=== PATIENT | male | born 1940 | race Caucasian/White ===

== ENCOUNTER 2018-02-14 02:21 | Inpatient (IN) ==
[2018-02-14] MEDS ORDERED: Naloxone 0.4 MG/ML INJ IVP PRN (05:42)
--- NOTE | 2018-02-14 05:44 | Internal Med History&Physical ---
<Juancarlos Boyer - Last Filed: 02/14/18 06:18> Date of Encounter: 02/14/18 Time of Encounter: 05:41 Internal Medicine - H&P: HPI Chief complaint: Hypotension Admitted From: Hospital to Hospital Transfer Plans for Post Hospital Care: Home History of present illness: Mr. Martinez is a 77 year old male with past medical history of aortic aneurysm with dissection status post repair in 2013, DVT not on anticoagulation, hypertension, coronary artery disease, gave lesion, chronic anemia who presented to [facility] emergency room this evening with complaint of hypotension. He states that he has been feeling very weak and dizzy on and off since yesterday morning and he took his blood pressure and noted that it was low. He states he normally runs in the 100s to 110s systolic but noticed it was 90. He has been experienced this multiple times in the past and states that he has required transfusions at least once per month for the past 6 months. He has had multiple workups in the past for chronic anemia with GI bleed and hypotension at [place], [facility], [facility]. He has also been working with Dr. Turcios and cancer center for anemia and receiving iron supplementation. He also has complaint of loose stools and diarrhea for the past 6 weeks which she has been told it is related to his gave syndrome. He states he has approximately 2-3 bowel movements per day which are sometimes watery sometimes formed but he has never noticed any bright red blood or melena. He also has some nausea and dry retching without vomiting during this time. He states his appetite has been decreased due to this but he has been drinking water and milk. He does have some abdominal pain but states it usually occurs only after his retching episodes. This also happens approximately once per day. He was scheduled to see Dr. Schafer on 03/01 for EGD. He was also diagnosed with a DVT in the right lower extremity last Monday at the [place]. He was not anticoagulated due to history of multiple GI bleeds and chronic anemia. He does have an IVC filter in place due to previous blood clots with pulmonary embolisms. He is having no symptoms of fevers but does admit to severe chills frequently. He denies any chest pain, shortness of breath and does admit to lower extremity edema. He is scheduled to see Dr. Turcios today for anemia follow-up. Vitals upon presentation to [facility] included heart rate of 109, respiratory rate 24, blood pressure 92/61 which improved to 110/76 with 1 L bolus of normal saline. Laboratory results significant for hemoglobin of 8.1 (baseline 7-9), BUNs/creatinine of 35/1.59, albumin of 2.7. Past medical history as above Past surgical history includes aneurysm repair in 2013, IVC filter Past surgical history includes a never smoker, no alcohol use, denies drug use Past Med Surg Social Fam HX - Past Medical History Medical history: aortic aneurysm, DVT, diabetes, hypertension, kidney stones, pulmonary embolus, other Additional medical history: Prostate cancer. Anemia. Psychiatric history: no psych history - Past Surgical History Surgical History: coronary bypass (CABG), other Additional surgical history: AAA repair - Social History Smoking Status: Former smoker Smokeless Tobacco Status: No Alcohol use: none Drug use: none - Family History Mother Name: Iris Martinez Living Status: Age at : 79 Cause of : heart issues cancer and dm Hx Family Cardiac Disorders: Yes Hx Family Endocrine Disorder: Yes (DM) Internal Medicine - H&P: Meds Carvedilol [Coreg] 25 mg PO BID 08/06/17 [History] Cyanocobalamin (Vitamin B-12) [Vitamin B12] 1,000 mcg PO DAILY 08/06/17 [History ] Folic Acid 1 mg PO DAILY 08/06/17 [History] Magnesium 84 mg PO BID 08/06/17 [History] Multivit-Min/FA/Lycopen/Lutein [Centrum Silver Men Tablet] 1 each PO DAILY 08/06 [History] Pantoprazole Sodium [Protonix] 40 mg PO BID 08/06/17 [History] Potassium Chloride [Klor-Con 10] 10 meq PO TID 08/06/17 [History] Venlafaxine [Effexor] 0.5 tab PO DAILY 08/06/17 [History] Vitamin E Acetate [Vitamin E] 400 unit PO DAILY 08/06/17 [History] Albuterol Sulfate [Albuterol Inhaler] 2 puff IH BID PRN 10/18/17 [History] Insulin ASPART [Novolog Flexpen] 0 unit SQ TIDWM 11/08/17 [History] Insulin Glargine [Lantus] 86 unit SQ BID 11/08/17 [History] Torsemide [Demadex] 10 mg PO DAILY 11/08/17 [History] l Gass[place]/B Bifidum/B Longum [Opternative Capsule] 1 each PO DAILY [History] Ondansetron HCl [Zofran] 4 mg PO Q6H PRN #30 tab 12/06/17 [Rx] Atorvastatin [Lipitor] 40 mg PO HS 12/24/17 [History] Promethazine [Phenergan] 12.5 mg PO Q6HR 15 Days #60 tablet 12/28/17 [Rx] Cholecalciferol (Vitamin D3) [Vitamin D] 2,000 unit PO DAILY 01/18/18 [History] Loperamide [Imodium] 2 mg PO AD PRN 01/18/18 [History] Prochlorperazine Maleate [Compazine] 5 mg PO BID PRN 01/18/18 [History] 3 Allergy/AdvReac Type Severity Reaction Status Date / Time Sulfa (Sulfonamide Allergy Rash Verified 02/13/18 22:50 Antibiotics) acetaminophen [From Vicodin] AdvReac Confusion Verified 02/13/18 22:50 hydrocodone [From Vicodin] AdvReac Confusion Verified 02/13/18 22:50 tramadol AdvReac Confusion Verified 02/13/18 22:50 All Systems PM: A 10-system review of systems was performed and is negative for pertinent findings except as documented above in the HPI. - Constitutional Constitutional: chills, lethargy, malaise, no fever(s) - Cardiovascular Cardiovascular ROS IM: edema, lightheadedness, no chest pain, no diaphoresis, no dyspnea, no dyspnea on exertion, no orthopnea, no palpitations, no syncope - Respiratory Respiratory: no cough, no dyspnea, no dyspnea on exertion, no wheezing - Gastrointestinal Gastrointestinal: abdominal pain, change in bowel habits, diarrhea, loose stools , nausea, vomiting, no constipation, no dyspepsia, no dysphagia, no hematemesis , no hematochezia, no melena - Integumentary Integumentary IM: no rash - Neurological Neurological ROS: dizziness, no numbness, no tingling - Constitutional Vitals: Temp Pulse Resp BP Pulse Ox 97.6 F 90 16 99/69 97 02/14/18 04:49 02/14/18 04:49 02/14/18 04:49 02/14/18 04:49 02/14/18 04:49 Exam: Gen.: Vitals noted. No acute distress. AAOx3. Hard of hearing HEENT: PERRL/EOMI, oropharynx clear, Normocephalic, atraumatic, mildly dry mucous membranes Cardiac: RRR, systolic murmur, +S1/S2 Pulmonary: CTA bilaterally, no wheezes, rales or rhonchi, equal chest expansion Abdomen: soft, tender to palpation of left upper quadrant, BS noted, no guarding MSK: ROM intact, no joint swelling noted Extremities: Significant 3+ BLE edema, no focal areas of erythema, no cyanosis or clubbing Neuro: A&Ox3, moves all extremities, no focal deficits Psych: Appropriate mood and behavior - Assessment and plan (1) GI bleed Current Visit: Yes Status: Suspected Assessment and plan: - 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 Patient states he requires transfusions approximately once per month - Denies melena, hematochezia, hematemasis - FOBT ordered and pending. - Multiple recent scopes, scheduled for EGD with [facility] later this month - [place] Hypotension likely from multiple factors including decreased oral intake, chronic diarrhea, hypoalbuminemia with third spacing. - Improved with fluids, will continue at 100/hr Plan - Appears to be chronic anemia and no acute bleeding. - Will consult GI for further recommendations - Trend H/H - Not on AC for DVT Qualifiers: GI bleed type/associated pathology: angiodysplasia of stomach and duodenum Qualified Code(s): K31.811 - Angiodysplasia of stomach and duodenum with bleeding (2) GAVE (gastric antral vascular ectasia) Current Visit: Yes Status: Acute Assessment and plan: as above for GI bleed Diagnosed at [facility], has followed with Gi in the past (3) CAD (coronary artery disease) Current Visit: Yes Status: Chronic Assessment and plan: - Chronic, no chest pain -Will continue BB when BP is more stable Not on ASA due to bleeds Qualifiers: Coronary Disease-Associated Artery/Lesion type: unspecified vessel or lesion type [place] vs. transplanted heart: unspecified whether [place] or transplanted heart Associated angina: without angina Qualified Code(s): I25.10 - Atherosclerotic heart disease of [place] coronary artery without angina pectoris (4) Hypoalbuminemia Current Visit: Yes Status: Acute Assessment and plan: Albumin of 2.7, likely at least in part due to poor nutrition - Patient denies history of liver disease, kidney disease - Will replace albumin with goal of improving BP and edema (5) Hypotension Current Visit: Yes Status: Acute Assessment and plan: - Likely multifactorial from decreased oral intake, diarrhea, vomiting, history of GI bleeds - Presented at 92/61, improved with fluids to 110/76 at [facility]. Mildly low on presentation here at 99/69 - Patient was initially symptomatic with lightheadedness, now resolved. - Plan: Continue fluids, add albumin, consult GI, Zofran, immodium Qualifiers: Hypotension type: unspecified hypotension type Qualified Code(s): I95.9 - Hypotension, unspecified (6) DVT (deep venous thrombosis) Current Visit: Yes Status: Acute Assessment and plan: - Diagnosed at [place] last Monday - Not on AC due to very significant history of GI bleeds - Requested patient to bring in records - High risk for bleeds. - patient states he had IVC filter placed approximately 5 years ago for DVT/PE Qualifiers: DVT location: lower extremity Affected thrombotic vein of extremity: unspecified lower extremity distal vein Chronicity: acute Laterality: right Qualified Code(s): I82.4Z1 - Acute embolism and thrombosis of unspecified deep veins of right distal lower extremity (7) Diabetes Current Visit: Yes Status: Chronic Assessment and plan: BS on presentation of 136 - Will start SSI - A1c Qualifiers: Diabetes mellitus type: type 2 Diabetes mellitus long lines operator insulin use: with senior living use Diabetes mellitus complication status: without complication Qualified Code(s): E11.9 - Type 2 diabetes mellitus without complications; Z79.4 - USP (current) use of insulin (8) Anemia Current Visit: Yes Status: Chronic Assessment and plan: - Chronic anemia with baseline hgb of 7-9 - Likely combination of iron deficiency with chronic blood loss due to GI bleeds , GAVE syndrome - Near baseline at 8.1/31.4 - Symptoms of lightheadedness, likely related to hypotension as above - Continue to monitor, FOBT, H/H - Transfuse as necessary and type and screen - Will give Iron and consult Heme/Onc Qualifiers: Anemia type: iron deficiency Iron deficiency anemia type: chronic blood loss Qualified Code(s): D50.0 - Iron deficiency anemia secondary to blood loss (chronic) (9) BLAYNE (acute kidney injury) Current Visit: Yes Status: Acute Assessment and plan: BLAYNE on CKD with BUN/Cr of 35/1.59 - 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 Previous labs show stage III - Likely secondary to pre-renal causes as above - Will hydrate with NS at 100/hr - Continue to monitor - Time Spent With Patient Total time spent is greater than 50% in coordination of care (as documented) at patient's floor/unit and/or counseling patient: <Santo Jin - Last Filed: 02/14/18 06:56> Date of Encounter: 02/14/18 Internal Medicine - H&P: HPI History of present illness: Mr. Martinez is a 77 year old male All Systems PM: A 10-system review of systems was performed and is negative for pertinent findings except as documented above in the HPI. - Constitutional Vitals: Temp Pulse Resp BP Pulse Ox 97.6 F 90 16 99/69 97 02/14/18 04:49 02/14/18 04:49 02/14/18 04:49 02/14/18 04:49 02/14/18 04:49 - Attending Attestation I have seen and examined the patient with Dr. Boyer and agree with his/ her assessment and plan. 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 Had similar episode last Monday when he was given IV fluids but he was continued on diuretics as well as antihypertensive medications over the weekend. Denies any hematochezia, melena, bright red blood per rectum or change in bowel habits. Initial investigation revealed acute on chronic kidney failure as well as drop in hemoglobin from 9.5 to 8.1 which is actually close to his baseline. Suspect hypotension from volume depletion in addition to ongoing diuretic and beta emily use rather than acute GI bleed. Will continue IV fluids, check H&H and FOBT, and continue IV iron in view of refractory iron deficiency anemia. Has an appointment with hematology today as an outpatient so we will consult heme. GI has scheduled EGD for the patient on 03/01; will follow up on their recommendation for timing of EGD. Apparently has DVT scan done at [place] [facility] which was +ve. This is not a anticoagulation candidate, advised the to bring in the report read and a repeat study here at [facility]. Still has IVC filter in situ. Santo Jin MD - Assessment and plan (1) Diabetes Current Visit: Yes Status: Chronic Qualifiers: Diabetes mellitus type: type 2 Diabetes mellitus senior living insulin use: with senior living use Diabetes mellitus complication status: without complication Qualified Code(s): E11.9 - Type 2 diabetes mellitus without complications; Z79.4 - termite technician (current) use of insulin (2) Anemia Current Visit: Yes Status: Chronic Qualifiers: Anemia type: iron deficiency Iron deficiency anemia type: chronic blood loss Qualified Code(s): D50.0 - Iron deficiency anemia secondary to blood loss (chronic) (3) Hypotension Current Visit: Yes Status: Acute Qualifiers: Hypotension type: unspecified hypotension type Qualified Code(s): I95.9 - Hypotension, unspecified (4) DVT (deep venous thrombosis) Current Visit: Yes Status: Acute Qualifiers: DVT location: lower extremity Affected thrombotic vein of extremity: unspecified lower extremity distal vein Chronicity: acute Laterality: right Qualified Code(s): I82.4Z1 - Acute embolism and thrombosis of unspecified deep veins of right distal lower extremity (5) GI bleed Current Visit: Yes Status: Suspected Qualifiers: GI bleed type/associated pathology: angiodysplasia of stomach and duodenum Qualified Code(s): K31.811 - Angiodysplasia of stomach and duodenum with bleeding (6) GAVE (gastric antral vascular ectasia) Current Visit: Yes Status: Acute (7) CAD (coronary artery disease) Current Visit: Yes Status: Chronic Qualifiers: Coronary Disease-Associated Artery/Lesion type: unspecified vessel or lesion type [place] vs. transplanted heart: unspecified whether [place] or transplanted heart Associated angina: without angina Qualified Code(s): I25.10 - Atherosclerotic heart disease of [place] coronary artery without angina pectoris (8) Hypoalbuminemia Current Visit: Yes Status: Acute (9) BLAYNE (acute kidney injury) Current Visit: Yes Status: Acute - Time Spent With Patient Total time spent is greater than 50% in coordination of care (as documented) at patient's floor/unit and/or counseling patient:
[2018-02-14] MEDS ORDERED: Albumin 25% 25gram/100mL 25 GM/100 ML IV.SOLN IVPB ONE (05:51)
[2018-02-14] MEDS: 0.9 % Sodium Chloride 1,000 ML IVC SCH (06:35)
[2018-02-14] MEDS: Ondansetron 4 MG/2 ML VIAL IVP PRN (06:36)
[2018-02-14] MEDS ORDERED: Dextrose Gel 15 GM/37.5 ML TUBE PO PRN ×2 (06:43)
[2018-02-14] MEDS ORDERED: *HR* Dextrose 50 % in Water (Syg) 50 ML SYRINGE IVP PRN (06:43)
[2018-02-14] MEDS ORDERED: D5% in Water 1,000 ML IVC PRN (06:43)
[2018-02-14 08:04] LABS: Basophils % 0.2 %; Eosinophils # 0.1 K/mcL (0.0-0.6); Eosinophils % 1.5 %; Hematocrit 24.7 % (37.5-50.1); Hemoglobin 7.2 g/dL (12.9-16.9); Immature Granulocytes % 0.6 % (0-4); Lymphocytes # 0.3 K/mcL (0.6-4.6); Lymphocytes % 6.4 %; Mean Corpuscular HGB Conc 29.1 g/dL (31.6-35.5); Mean Corpuscular Hemoglobin 24.9 pg (28.0-33.3); Mean Corpuscular Volume 85.5 fL (83.0-100.0); Mean Platelet Volume 10.8 fL (9.4-12.4); Monocytes # 0.5 K/mcL (0.0-1.3); Monocytes % 9.3 %; Neutrophils # 4.3 K/mcL (1.6-8.9); Platelet Count 116 K/mcL (140-400); Red Blood Count 2.89 M/mcL (4.19-5.50); Red Cell Distribution Width 17.9 % (11.5-14.5)
[2018-02-14 08:14] LABS: Estimated Average Glucose 160 mg/dl; Hemoglobin A1C 7.2 %
[2018-02-14 08:17] LABS: INR 1.3; Prothrombin Time 14.3 Seconds (9.4-12.1)
[2018-02-14 08:19] LABS: Activated Partial Thrombo Time 21.9 Seconds (26.0-36.0)
[2018-02-14 08:26] LABS: BUN/Creatinine Ratio 24 (6-26); Blood Urea Nitrogen 33 mg/dL (8-23); Calcium 7.5 mg/dL (8.6-10.3); Carbon Dioxide 19 mEq/L (23-29); Chloride 111 mEq/L (98-107); Glucose 174 mg/dL (70-105); Osmolality,Calculated 297 (280-300); Potassium 4.3 mEq/L (3.5-5.1); Sodium 138 mEq/L (136-145); eGFR For Non-African Americans 50 (> 60)
[2018-02-14] MEDS: Iron Sucrose Complex 250 MG in 0.9 % Sodium Chloride 250 ML IVPB SCH (09:19)
--- NOTE | 2018-02-14 10:04 | Oncology Inp Consult Note ---
<Nicko Aguilar - Last Filed: 02/14/18 15:34> Date of Encounter: 02/14/18 Time of Encounter: 09:56 Assessment and Plan (1) Anemia Status: Chronic Assessment and plan: patient presents with worsening anemia hgb was 9.4 on 02/01/18 and today is 7.2 patient had bowel movement this morning that was brown, no evidence of hematocheiza or melena. He has had an extensive workup with BM biopsy showing erythroid hyperplasia. cytogenetics/FISH studies negative for MDS, multiple myeloma with his history of GAVE and recent pill endoscopy last month showing GAVE and duodenal AVM he will need an EGD inpatient to evaluate UGI bleed. GI was already consulted. He is received IV iron already so no need to repeat iron panel. Patient also has elevated INR of 1.3 and platelets of 1.6 with recent paracentesis which may be signs of cirrhosis plan: pantoprazole 40mg BID, NPO, await GI recommendations, transfuse if hgb <7 Qualifiers: Anemia type: iron deficiency Iron deficiency anemia type: chronic blood loss Qualified Code(s): D50.0 - Iron deficiency anemia secondary to blood loss (chronic) (2) BLAYNE (acute kidney injury) Status: Acute Assessment and plan: BLAYNE on CKD III 2nd to anemia on IVF (3) DVT (deep venous thrombosis) Status: Acute Assessment and plan: recently [facility] has IVC filter placed in 2014 after patient had PE and he was not a candidate for anticoagulatioon due to GI bleed patient has GI bleed this admission. hold any anticoagulation Qualifiers: DVT location: lower extremity Affected thrombotic vein of extremity: unspecified lower extremity distal vein Chronicity: acute Laterality: right Qualified Code(s): I82.4Z1 - Acute embolism and thrombosis of unspecified deep veins of right distal lower extremity (4) GAVE (gastric antral vascular ectasia) Status: Acute Assessment and plan: plan as above. - Data of Consult Patient: known to practice within the last 3 years Consult date: 02/14/18 Requesting Physician: Santo Jin MD Primary Care Provider: PCP [facility] - Consult Narrative Reason for consult: anemia History of present illness: Mr. 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 Patient repors having symptoms of dizziness throughout the day yesterday. He then checked his BP at home which was in systolic 80s. He went to [place] [facility] where he was given 1L IVF which improved his blood pressure. Patient follows Dr. Turcios for chronic anemia and has recieved multiple transfusions of PRBC and IV iron. He reports loose stools and dry heaving as well as sputum production, LE edema. He denies headache, blurry vision, neck pain, rinorrhea, ear discharge , sob, cough, chest pain, palpitations, abdominal pain, N/V/D. Patient was scheduled with Dr. Schafer on 03/01 for EGD. Patient has had 20 packed red blood cells and 9 doses of IV iron in past 6 months. 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 He has recent capsule endosocpy showing GAVE along with duodenal AVM. He recently had a paracentesis draining 9L with cytology negative for malignancy. Unclear etiology of paracentesis Past Med Surg Social Fam HX - Past Medical History Medical history: aortic aneurysm, DVT, diabetes, hypertension, kidney stones, pulmonary embolus, other Additional medical history: Prostate cancer. Anemia. Psychiatric history: no psych history - Past Surgical History Surgical History: coronary bypass (CABG), other Additional surgical history: AAA repair - Social History Smoking Status: Former smoker Smokeless Tobacco Status: No Alcohol use: none Drug use: none - Family History Mother Name: Iris Martinez Living Status: Age at : 79 Cause of : heart issues cancer and dm Hx Family Cardiac Disorders: Yes Hx Family Endocrine Disorder: Yes (DM) Medications and Allergies Carvedilol [Coreg] 25 mg PO BID 08/06/17 [History] Cyanocobalamin (Vitamin B-12) [Vitamin B12] 1,000 mcg PO DAILY 08/06/17 [History ] Folic Acid 1 mg PO DAILY 08/06/17 [History] Magnesium 84 mg PO BID 08/06/17 [History] Multivit-Min/FA/Lycopen/Lutein [Centrum Silver Men Tablet] 1 each PO DAILY 08/06 [History] Pantoprazole Sodium [Protonix] 40 mg PO BID 08/06/17 [History] Potassium Chloride [Klor-Con 10] 10 meq PO TID 08/06/17 [History] Venlafaxine [Effexor] 37.5 tab PO DAILY 08/06/17 [History] Vitamin E Acetate [Vitamin E] 400 unit PO DAILY 08/06/17 [History] Albuterol Sulfate [Albuterol Inhaler] 2 puff IH BID PRN 10/18/17 [History] Insulin ASPART [Novolog Flexpen] 20 unit SQ QAM 11/08/17 [History] Insulin Glargine [Lantus] 90 unit SQ BID 11/08/17 [History] Torsemide [Demadex] 10 mg PO DAILY 11/08/17 [History] l Gasseri/B Bifidum/B Longum [[employer] Capsule] 1 each PO DAILY [History] Ondansetron HCl [Zofran] 4 mg PO Q6H PRN #30 tab 12/06/17 [Rx] Atorvastatin [Lipitor] 40 mg PO HS 12/24/17 [History] Cholecalciferol (Vitamin D3) [Vitamin D] 2,000 unit PO DAILY 01/18/18 [History] Prochlorperazine Maleate [Compazine] 5 mg PO BID PRN 01/18/18 [History] Insulin ASPART [NovoLOG] 35 unit SQ 1200 02/14/18 [History] Insulin ASPART [NovoLOG] 48 unit SQ 1800 02/14/18 [History] 3 Allergy/AdvReac Type Severity Reaction Status Date / Time Sulfa (Sulfonamide Allergy Rash Verified 02/13/18 22:50 Antibiotics) acetaminophen [From Vicodin] AdvReac Confusion Verified 02/13/18 22:50 hydrocodone [From Vicodin] AdvReac Confusion Verified 02/13/18 22:50 tramadol AdvReac Confusion Verified 02/13/18 22:50 Review of systems: Constitutional: Denies fever, chills HEENT: Denies headache, vision changes, neck pain, sore throat, rhinorrhea Heart: Denies chest pain palpitations Lungs: Denies shortness of breath cough Abdomen: Denies abdominal pain nausea vomiting diarrhea. Reports dry heaves Back: Denies back pain Kidney: Denies dysuria, hematuria Skin: Denies rash, lesions Extremities: reports swelling, pain Neuro: Denies numbness and tingling. Reports dizziness Oncology - Exam - Constitutional Vitals: Temp Pulse Resp BP Pulse Ox 98.4 F 94 18 104/67 92 02/14/18 07:26 02/14/18 07:26 02/14/18 07:26 02/14/18 07:26 02/14/18 07:26 - Additional findings Additional findings: General: plesant without distress HEENT: Head atraumatic, normocephalic, EOMI, PERRL, neck nontender to palpation , absent lymphadenopathy, Moist Mucous Membranes, Heart: Regular rate and rhythm with no murmur Lungs: Clear to auscultation bilaterally Abdomen: Soft nontender, nondistended positive bowel sounds Skin: warm and dry, absent rash Extremities: 2+ pedal edema Neuro:alert oriented x3 Vascular: Pedal and radial pulses 2 out of 4 Oncology - Results Labs: 3 02/14/18 02/14/18 02/14/18 07:52 07:52 07:52 WBC RBC Hgb Hct MCV MCH MCHC RDW Plt Count MPV Immature Gran % Seg Neutrophils % Lymphocytes % Monocytes % Eosinophils % Basophils % Neutrophils # Lymphocytes # Monocytes # Eosinophils # Basophils # PT 14.3 H INR 1.3 APTT 21.9 L Sodium 138 Potassium 4.3 Chloride 111 H Carbon Dioxide 19 L BUN 33 H Creatinine 1.38 H Est GFR ( Amer) > 60 Est GFR (Non-Af Amer) 50 L BUN/Creatinine Ratio 24 Glucose 174 H Est Mean Plasma Glucose 160 Hemoglobin A1c 7.2 H Calculated Osmolality 297 Calcium 7.5 L Blood Type Antibody Screen 3 02/14/18 02/14/18 07:52 05:55 WBC 5.3 RBC 2.89 L Hgb 7.2 L Hct 24.7 L MCV 85.5 MCH 24.9 L MCHC 29.1 L RDW 17.9 H Plt Count 116 L MPV 10.8 Immature Gran % 0.6 Seg Neutrophils % 82.0 Lymphocytes % 6.4 Monocytes % 9.3 Eosinophils % 1.5 Basophils % 0.2 Neutrophils # 4.3 Lymphocytes # 0.3 L Monocytes # 0.5 Eosinophils # 0.1 Basophils # 0.0 PT INR APTT Sodium Potassium Chloride Carbon Dioxide BUN Creatinine Est GFR ( Amer) Est GFR (Non-Af Amer) BUN/Creatinine Ratio Glucose Est Mean Plasma Glucose Hemoglobin A1c Calculated Osmolality Calcium Blood Type O POSITIVE Antibody Screen NEGATIVE Consult Discharge Plan - Plan [facility]errals: [facility]Primary Care Provider[facility] - <Alex Turcios - Last Filed: 02/14/18 22:29> Date of Encounter: 02/14/18 - Data of Consult Requesting Physician: Santo Jin MD Primary Care Provider: [facility] - Consult Narrative History of present illness: Mr. Martinez is a 77 year old male Oncology - Exam - Constitutional Vitals: Temp Pulse Resp BP Pulse Ox 99 F 98 18 130/76 95 02/14/18 20:13 02/14/18 20:13 02/14/18 20:13 02/14/18 20:13 02/14/18 19:51 Oncology - Results Labs: 3 02/14/18 02/14/18 02/14/18 15:52 12:12 11:48 WBC RBC Hgb 7.4 L Hct 24.9 L MCV MCH MCHC RDW Plt Count MPV Immature Gran % Seg Neutrophils % Lymphocytes % Monocytes % Eosinophils % Basophils % Neutrophils # Lymphocytes # Monocytes # Eosinophils # Basophils # PT INR APTT Sodium Potassium Chloride Carbon Dioxide BUN Creatinine Est GFR ( Amer) Est GFR (Non-Af Amer) BUN/Creatinine Ratio Glucose POC Glucose 141 H 134 H Est Mean Plasma Glucose Hemoglobin A1c Calculated Osmolality Calcium Blood Type Antibody Screen Crossmatch 3 02/14/18 02/14/18 02/14/18 07:52 07:52 07:52 WBC RBC Hgb Hct MCV MCH MCHC RDW Plt Count MPV Immature Gran % Seg Neutrophils % Lymphocytes % Monocytes % Eosinophils % Basophils % Neutrophils # Lymphocytes # Monocytes # Eosinophils # Basophils # PT 14.3 H INR 1.3 APTT 21.9 L Sodium 138 Potassium 4.3 Chloride 111 H Carbon Dioxide 19 L BUN 33 H Creatinine 1.38 H Est GFR ( Amer) > 60 Est GFR (Non-Af Amer) 50 L BUN/Creatinine Ratio 24 Glucose 174 H POC Glucose Est Mean Plasma Glucose 160 Hemoglobin A1c 7.2 H Calculated Osmolality 297 Calcium 7.5 L Blood Type Antibody Screen Crossmatch 3 02/14/18 02/14/18 02/14/18 07:52 07:29 05:55 WBC 5.3 RBC 2.89 L Hgb 7.2 L Hct 24.7 L MCV 85.5 MCH 24.9 L MCHC 29.1 L RDW 17.9 H Plt Count 116 L MPV 10.8 Immature Gran % 0.6 Seg Neutrophils % 82.0 Lymphocytes % 6.4 Monocytes % 9.3 Eosinophils % 1.5 Basophils % 0.2 Neutrophils # 4.3 Lymphocytes # 0.3 L Monocytes # 0.5 Eosinophils # 0.1 Basophils # 0.0 PT INR APTT Sodium Potassium Chloride Carbon Dioxide BUN Creatinine Est GFR ( Amer) Est GFR (Non-Af Amer) BUN/Creatinine Ratio Glucose POC Glucose 171 H Est Mean Plasma Glucose Hemoglobin A1c Calculated Osmolality Calcium Blood Type O POSITIVE Antibody Screen NEGATIVE Crossmatch See Detail - Attending Attestation I have seen and examined Mr. Martinez and agree with the resident's assessment. Mr. Martinez is well known to me, and I see him about every 2-4 weeks for recurrent /persistent anemia secondary to occult GI loss and resultant iron deficiency. Also has multitude of other medical comorbidities: CHF, probable cirrhosis, stage III ckd, general debility and poor PS. Agree with iron infusion, blood transfusion and EGD. Watch fluid status closely. Introduced concept of hospice to his today. He has been ill for sometime and is starting to tire from care. Would like to d/w patient tomorrow further. Will consider palliative care consultation pending tomorrow's discussion.
[2018-02-14 12:08] LABS: Hematocrit 24.9 % (37.5-50.1); Hemoglobin 7.4 g/dL (12.9-16.9)
[2018-02-14] MEDS: Insulin LISPRO 300 UNITS/3 ML VIAL SQ SCH ×3 (12:20→23:54)
--- NOTE | 2018-02-14 12:47 | Gastroenterology Consult Note ---
<Homer Montoya - Last Filed: 02/14/18 12:44> Date of Encounter: 02/14/18 Time of Encounter: 11:40 - Assessment and plan (1) GI bleed Status: Suspected Assessment and plan: Likely secondary to GAVE and duodenal AVM. Plan for EGD tomorrow, keep NPO at midnight. Qualifiers: GI bleed type/associated pathology: angiodysplasia of stomach and duodenum Qualified Code(s): K31.811 - Angiodysplasia of stomach and duodenum with bleeding (2) AVM (arteriovenous malformation) of duodenum, acquired Status: Acute Assessment and plan: Noted on capsule endoscopy 12/18/2017. Plan for EGD tomorrow to evaluate. Keep NPO at midnight. (3) GAVE (gastric antral vascular ectasia) Status: Acute Assessment and plan: Plan for EGD tomorrow, keep NPO at midnight. (4) Anemia Status: Chronic Assessment and plan: Hgb 9.1 at ED and 7.2 this AM. Recommend transfusing to keep Hgb >8 as GAVE and duodenal AVM can continue to ooze. Will give 2 units PRBC. Plan for EGD tomorrow. Qualifiers: Anemia type: iron deficiency Iron deficiency anemia type: chronic blood loss Qualified Code(s): D50.0 - Iron deficiency anemia secondary to blood loss (chronic) - Time Spent With Patient Total time spent is greater than 50% in coordination of care (as documented) at patient's floor/unit and/or counseling patient: GI History of Present Illness - Data of Consult Patient: known to practice within the last 3 years Consult date: 02/14/18 Requesting Physician: Santo Jin MD - Consult Narrative Reason for consult: anemia History of present illness: Mr. Martinez is a 77 year old male with PMHx of aortic aneurysm with dissection status post repair in 2013, DVT not on anticoagulation, hypertension, coronary artery disease, GAVE lesion, chronic anemia who presented to [place] emergency room this evening with complaint of hypotension. He states that he has been feeling very weak and dizzy on and off since yesterday morning and he took his blood pressure and noted that it was low. He states he normally runs in the 100s to 110s systolic but noticed it was 90. He has been experienced this multiple times in the past and states that he has required transfusions at least once per month for the past 6 months. He was scheduled for EGD on 03/[address] Schafer. He was also diagnosed with a DVT in the right lower extremity last Monday at the [facility]. He was not anticoagulated due to history of multiple GI bleeds and chronic anemia. He does have an IVC filter in place due to previous blood clots with pulmonary embolisms. Hgb 9.1 at ED and 7.2 this AM. He denies hematemesis, melena, or hematochezia. Fecal occult blood test has been ordered. Procedures: Capsule Endoscopy 12/18/2017 Dr. Schafer: Gastric antral vascular ectasia (GAVE), duodenal AVM NSAIDs: None Anticoagulation: None Past Med Surg Social Fam HX - Past Medical History Medical history: aortic aneurysm, DVT, diabetes, hypertension, kidney stones, pulmonary embolus, other Additional medical history: Prostate cancer. Anemia. Psychiatric history: no psych history - Past Surgical History Surgical History: coronary bypass (CABG), other Additional surgical history: AAA repair - Social History Smoking Status: Former smoker Smokeless Tobacco Status: No Alcohol use: none Drug use: none - Family History Mother Name: Iris Martinez Living Status: Age at : 79 Cause of : heart issues cancer and dm Hx Family Cardiac Disorders: Yes Hx Family Endocrine Disorder: Yes (DM) - Gastrointestinal Gastrointestinal: Present: as per HPI - Constitutional Constitutional: as per HPI - EENT Eyes: as per HPI Ears: Present: as per HPI Nose, mouth and throat: Present: as per HPI - Cardiovascular Cardiovascular ROS: Present: as per HPI - Respiratory Respiratory IM: Present: as per HPI - Genitourinary Genitourinary: Absent: change in color, Urinary frequency - Neurological ROS Neurological GI: Present: as per HPI - Hematologic/Lymphatic Hematologic/Lymphatic pediatric: Present: as per HPI - Musculoskeletal Musculoskeletal ROS GI: Present: as per HPI - Integumentary Integumentary GI: Present: as per HPI - Psychiatric ROS Psychiatric GI: Present: as per HPI - Endocrine Endocrine IM: Present: as per HPI - Constitutional Vitals: Temp Pulse Resp BP Pulse Ox 98.5 F 90 18 101/62 88 02/14/18 12:14 02/14/18 12:14 02/14/18 12:14 02/14/18 12:14 02/14/18 12:14 General appearance: Present: cooperative, A&O X 3, no acute distress, answers questions appropriately - Head Head exam: Present: atraumatic, normocephalic - Eye Eye exam: Present: normal appearance, sclera anicteric - ENT ENT exam: Present: mucous membranes moist - Neck Neck exam general surgery: Present: normal inspection, trachea midline - Respiratory Respiratory exam: Present: decreased breath sounds, CTAB. Absent: rales, rhonchi - Cardiovascular Cardiovascular exam: Present: RRR, +S1, +S2 - GI/Abdominal GI/Abdominal exam: Present: soft, no peritoneal signs. Absent: distended, firm , guarding, tenderness - Rectal Rectal exam: Present: deferred - Extremities Exam Extremities exam: Present: warm - Neurological Exam Neurological exam: Present: no focal deficits - Psychiatric Psychiatric exam: Present: normal affect, normal mood - Skin Skin exam: Present: dry, intact, normal color, warm Results - Labs CBC & Chem 7: 02/14/18 11:48 02/14/18 07:52 Labs: Last Result Calcium 7.5 mg/dL (8.6-10.3) L 02/14/18 07:52 Entire Visit Hgb 7.4 g/dL (12.9-16.9) L 02/14/18 11:48 Hct 24.9 % (37.5-50.1) L 02/14/18 11:48 PT 14.3 Seconds (9.4-12.1) H 02/14/18 07:52 - ABG ABG results: PT/INR, D-dimer PT 14.3 Seconds (9.4-12.1) H 02/14/18 07:52 Consult Discharge Plan - Plan [facility]errals: [facility] [Primary Care Provider] - 02/21/18 12:15 pm <Mitchell Schafer - Last Filed: 02/26/18 04:23> Date of Encounter: 02/14/18 - Time Spent With Patient Total time spent is greater than 50% in coordination of care (as documented) at patient's floor/unit and/or counseling patient: GI History of Present Illness - Data of Consult Requesting Physician: Stephan Donald - Consult Narrative History of present illness: Mr. Martinez is a 77 year old male - Constitutional Vitals: Temp Pulse Resp BP Pulse Ox 97.8 F 87 18 99/62 93 02/19/18 16:04 02/19/18 16:04 02/19/18 16:04 02/19/18 16:04 02/19/18 16:04 Results - Labs CBC & Chem 7: 02/19/18 11:22 02/19/18 08:41 Labs: Last Result Calcium 7.2 mg/dL (8.6-10.3) L 02/19/18 08:41 Stool Occult Blood Positive (Negative) A 02/16/18 10:40 Entire Visit Hgb 9.4 g/dL (12.9-16.9) L 02/19/18 11:22 Hct 31.6 % (37.5-50.1) L 02/19/18 11:22 PT 14.3 Seconds (9.4-12.1) H 02/14/18 07:52 Total Bilirubin 0.5 mg/dL (0.3-1.0) 02/19/18 08:41 AST 33 Units/L (13-39) 02/19/18 08:41 ALT 19 Units/L (7-52) 02/19/18 08:41 - ABG ABG results: PT/INR, D-dimer PT 14.3 Seconds (9.4-12.1) H 02/14/18 07:52 - Attending Attestation Mr Martinez has known GAVE and was scheduled this week to come for an outpatient APC treatment session. However he had emperatriz melena and symptomatic anemia and presented to the hospital here. We will plan EGD and APC therapy here if, he has no other cause. I have personally performed a face to face evaluation on this patient. I have reviewed and agree with the care plan. History and Exam by me shows:
--- NOTE | 2018-02-14 14:19 | Internal Med Progress Note ---
Hospitalist Progress Note - Encounter Date of Encounter: 02/14/18 Time of Encounter: 12:30 - Subjective Interval History: Patient continues to feel weak and lethargic. He denies any new chest pain, shortness of breath - Exam Vitals: Temp Pulse Resp BP Pulse Ox 98.5 F 90 18 101/62 88 02/14/18 12:14 02/14/18 12:14 02/14/18 12:14 02/14/18 12:14 02/14/18 12:14 Exam: GENERAL: Alert, pale appearing, NECK: No jugulovenous distention, No carotid bruits, Carotid pulse normal contour, Supple LUNGS: Lungs clear to auscultation, Good diaphragmatic excursion CARDIAC: Normal S1 and S2; no rubs, murmurs, or gallops ABDOMEN: Abdomen soft, non-tender, BS normal, No masses or organomegaly EXTREMITIES: Extremities normal, no deformities, edema, clubbing or skin discoloration. Good capillary refill., No ulcers NEURO: Gait normal. Reflexes normal and symmetric. Sensation grossly intact, Cranial nerves II-XII intact Rest of the exam is non contributory - Assessment and Plan (1) Diabetes Current Visit: Yes Status: Chronic Assessment and Plan: Continue sliding scale insulin. Accu-Cheks (2) Anemia Current Visit: Yes Status: Chronic Assessment and Plan: - Chronic anemia with baseline hgb of 7-9 - Likely combination of iron deficiency with chronic blood loss due to GI bleeds , GAVE syndrome - Near baseline at 8.1/31.4 - Symptoms of lightheadedness, likely related to hypotension as above - Continue to monitor, FOBT, H/H - Transfuse as necessary and type and screen - Will give Iron and consult Heme/Onc 02/14-acute on chronic anemia most likely from chronic GI blood loss due to G JARED syndrome. Appreciate gastro-oncology consult. We will give him 1 unit of PRBC and most likely the patient is to undergo a endoscopy tomorrow morning. He will be prepped tonight and will keep nothing by mouth after midnight plan of care discussed with the nurse taking care of the patient. Continue to manage serial CBCs. Continue IV iron. Appreciate hematology, oncology consult. Continue PPI (3) Hypotension Current Visit: Yes Status: Acute Assessment and Plan: - Likely multifactorial from decreased oral intake, diarrhea, vomiting, history of GI bleeds - Presented at 92/61, improved with fluids to 110/76 at [place]. Mildly low on presentation here at 99/69 - Patient was initially symptomatic with lightheadedness, now resolved. - Plan: Continue fluids, add albumin, consult GI, Zofran, immodium 02/14-improved with fluids. Continue to monitor closely (4) DVT (deep venous thrombosis) Current Visit: Yes Status: Acute Assessment and Plan: - Diagnosed at [place] last Monday - Not on AC due to very significant history of GI bleeds - Requested patient to bring in records - High risk for bleeds. - patient states he had IVC filter placed approximately 5 years ago for DVT/PE 02/14-he has no DVT but nonantalgic regulation to history of GI bleeds and his gastroesophageal condition. 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 Previous labs show stage III - Likely secondary to pre-renal causes as above - Will hydrate with NS at 100/hr - Continue to monitor 02/14-continue gradual hydration and follow CBCs closely. DVT Prophylaxis: Intermittent compression device - Time Spent with Patient Total time spent is greater than 50% in coordination of care (as documented) at patient's floor/unit and/or counseling patient: 25 - 35 minutes Plan of Care Discussed with: patient Internal Medicine: Result - Labs CBC & Chem 7: 02/14/18 11:48 02/14/18 07:52 Labs: Short CBC 02/14/18 02/14/18 Range/Units 07:52 11:48 WBC 5.3 (4.3-11.1) K/mcL Hgb 7.2 L 7.4 L (12.9-16.9) g/dL Hct 24.7 L 24.9 L (37.5-50.1) % Plt Count 116 L (140-400) K/mcL Neutrophils # 4.3 (1.6-8.9) K/mcL BMP 02/14/18 07:52 Sodium 138 Potassium 4.3 Chloride 111 H Carbon Dioxide 19 L BUN 33 H Creatinine 1.38 H Glucose 174 H Calcium 7.5 L - ABG Interpretation ABG results: PT/INR, D-dimer PT 14.3 Seconds (9.4-12.1) H 02/14/18 07:52 - VTE Reasons for not Prescribing Prophylaxis: Medical contraindication Consult Discharge Plan - Plan [facility]errals: [facility] [Primary Care Provider] - (1) Diabetes Qualifiers: Diabetes mellitus type: type 2 Diabetes mellitus half-way insulin use: with exterminator helper use Diabetes mellitus complication status: without complication Qualified Code(s): E11.9 - Type 2 diabetes mellitus without complications; Z79.4 - shelter (current) use of insulin (2) Anemia Qualifiers: Anemia type: iron deficiency Iron deficiency anemia type: chronic blood loss Qualified Code(s): D50.0 - Iron deficiency anemia secondary to blood loss ( chronic) (3) Hypotension Qualifiers: Hypotension type: unspecified hypotension type Qualified Code(s): I95.9 - Hypotension, unspecified (4) DVT (deep venous thrombosis) Qualifiers: DVT location: lower extremity Affected thrombotic vein of extremity: unspecified lower extremity distal vein Chronicity: acute Laterality: right Qualified Code(s): I82.4Z1 - Acute embolism and thrombosis of unspecified deep veins of right distal lower extremity (5) GI bleed Qualifiers: GI bleed type/associated pathology: angiodysplasia of stomach and duodenum Qualified Code(s): K31.811 - Angiodysplasia of stomach and duodenum with bleeding (7) CAD (coronary artery disease) Qualifiers: Coronary Disease-Associated Artery/Lesion type: unspecified vessel or lesion type [place] vs. transplanted heart: unspecified whether [place] or transplanted heart Associated angina: without angina Qualified Code(s): I25.10 - Atherosclerotic heart disease of [place] coronary artery without angina pectoris
[2018-02-14] MEDS ORDERED: Furosemide 20 MG/2 ML VIAL IVP ONE (14:42)
[2018-02-14] MEDS ORDERED: 0.9 % Sodium Chloride 250 ML ONE ×2 (15:24→18:53)
[2018-02-14] MEDS: Pantoprazole 40 MG VIAL IVP SCH (18:28)
[2018-02-14] MEDS ORDERED: NON-FORMULARY MEDICATION 1 EACH EACH (Pantoprazole Sodium [Protonix] 40 MG) PO SCH (21:00)
[2018-02-14] MEDS: Insulin DETEMIR 100 UNIT/ML X5UNITS SQ SCH (22:25)
--- NOTE | 2018-02-14 22:43 | Anesthesia Evaluation PreOp ---
<Gerri Burdick - Last Filed: 02/14/18 22:41> Date of Encounter: 02/14/18 Time of Encounter: 22:41 - Past History Planned Operation: EGD Cardiac History: HTN, Cardiac Surgery (CABG), Other (AAA with dissection repaired in 2013) Pulmonary History: Former smoker, Other (hx of PE) LOGGING OPERATIONS INSPECTOR History: Denies Any Significant HX Other Medical History: Renal (acute on CKD), Diabetes Type II, Other (gastric antral vascular ectasis, acute DVT diagnosed last week, pt has IVC filter) Anesthesia History: No Prior Anesthetic Complications, Past Anesthesia (AAA repair, CABG, IVC filter) Alcohol Use: none Drug use: none Medications and Allergies Carvedilol [Coreg] 25 mg PO BID 08/06/17 [History] Cyanocobalamin (Vitamin B-12) [Vitamin B12] 1,000 mcg PO DAILY 08/06/17 [History ] Folic Acid 1 mg PO DAILY 08/06/17 [History] Magnesium 84 mg PO BID 08/06/17 [History] Multivit-Min/FA/Lycopen/Lutein [Centrum Silver Men Tablet] 1 each PO DAILY 08/06 [History] Pantoprazole Sodium [Protonix] 40 mg PO BID 08/06/17 [History] Potassium Chloride [Klor-Con 10] 10 meq PO TID 08/06/17 [History] Venlafaxine [Effexor] 37.5 tab PO DAILY 08/06/17 [History] Vitamin E Acetate [Vitamin E] 400 unit PO DAILY 08/06/17 [History] Albuterol Sulfate [Albuterol Inhaler] 2 puff IH BID PRN 10/18/17 [History] Insulin ASPART [Novolog Flexpen] 20 unit SQ QAM 11/08/17 [History] Insulin Glargine [Lantus] 90 unit SQ BID 11/08/17 [History] Torsemide [Demadex] 10 mg PO DAILY 11/08/17 [History] l [place]/B Bifidum/B Longum [[facility] Capsule] 1 each PO DAILY [History] Ondansetron HCl [Zofran] 4 mg PO Q6H PRN #30 tab 12/06/17 [Rx] Atorvastatin [Lipitor] 40 mg PO HS 12/24/17 [History] Cholecalciferol (Vitamin D3) [Vitamin D] 2,000 unit PO DAILY 01/18/18 [History] Prochlorperazine Maleate [Compazine] 5 mg PO BID PRN 01/18/18 [History] Insulin ASPART [NovoLOG] 35 unit SQ 1200 02/14/18 [History] Insulin ASPART [NovoLOG] 48 unit SQ 1800 02/14/18 [History] 3 Allergy/AdvReac Type Severity Reaction Status Date / Time Sulfa (Sulfonamide Allergy Rash Verified 02/13/18 22:50 Antibiotics) acetaminophen [From Vicodin] AdvReac Confusion Verified 02/13/18 22:50 hydrocodone [From Vicodin] AdvReac Confusion Verified 02/13/18 22:50 tramadol AdvReac Confusion Verified 02/13/18 22:50 - Meds/Allergy Pre-op Review Medications Reviewed: Yes Allergies Reviewed: Yes Beta Blockers on Current Med List: Yes If Beta Blockers taken, Date/Time (Last Dose taken): 02/14/18 8301 Anesthesia Results - Labs 02/14/18 11:48 02/14/18 07:52 - Imaging EKG: report reviewed (SINUS RHYTHM WITH SINUS ARRHYTHMIA Electronically Signed On 02-14-2018 17:11:31 EDT by Markus Covington) Anesthesia Exam Vital Signs/O2 Sat, Most Current Temp Pulse Resp BP Pulse Ox 98.3 F 98 18 114/80 95 02/14/18 22:22 02/14/18 20:13 02/14/18 22:22 02/14/18 22:22 02/14/18 19:51 Weight: 110kg - HEENT Pupil (Motor): Pupils equal, EOMI - LOGGING OPERATIONS INSPECTOR LOC: Oriented LOGGING OPERATIONS INSPECTOR Motor: Normal RUE, Normal LUE, Normal RLE, Normal LLE, Normal Face LOGGING OPERATIONS INSPECTOR Sensory: Normal: RUE, LUE, RLE, LLE, Face - Cardiac Rhythm: Regular - Pulmonary Breath Sounds: bilateral Clear Respiratory Effort: Symmetrical Anesthesia Assess/Plan ASA Score: 3 Modified [place] Scale for Level of Consciousness: Cooperative, oriented, and tranquil Anesthetic Plan: General, MAC Monitoring Plan: Standard Monitors Recovery Plan: PACU <Brenton Davidson - Last Filed: 02/15/18 09:38> Date of Encounter: 02/15/18 - Past History Cardiac History: Hyperlipidemia Anesthesia Results - Labs 02/14/18 11:48 02/14/18 07:52 Anesthesia Exam NPO (# of Hours): 8 Pain Scale: 0 Pain Scale Used: Numeric (1 - 10) - HEENT Mallampati: II Teeth: Poor dentition Oral Opening: Greater than 3 - LOGGING OPERATIONS INSPECTOR LOC: Oriented LOGGING OPERATIONS INSPECTOR Motor: Normal RUE, Normal LUE, Normal RLE, Normal LLE, Normal Face LOGGING OPERATIONS INSPECTOR Sensory: Normal: RUE, LUE, RLE, LLE, Face - Cardiac Rhythm: Regular Murmur: None - Pulmonary Breath Sounds: bilateral Clear Respiratory Effort: Symmetrical Anesthesia Assess/Plan ASA Score: 3 Modified [place] Scale for Level of Consciousness: Cooperative, oriented, and tranquil Anesthetic Plan: MAC Monitoring Plan: Standard Monitors
[2018-02-15] MEDS: Pantoprazole 40 MG VIAL IVP SCH ×2 (06:00→18:20)
[2018-02-15] MEDS: Insulin LISPRO 300 UNITS/3 ML VIAL SQ SCH ×3 (06:01→17:51)
[2018-02-15] MEDS: Folic Acid 1 MG TABLET PO SCH (09:40)
[2018-02-15] MEDS: Torsemide 20 MG TABLET PO SCH (09:40)
[2018-02-15] MEDS: Insulin DETEMIR 100 UNIT/ML X5UNITS SQ SCH ×2 (09:41→21:38)
[2018-02-15] MEDS: Iron Sucrose Complex 250 MG in 0.9 % Sodium Chloride 250 ML IVPB SCH (09:41)
[2018-02-15] MEDS: Ondansetron 4 MG/2 ML VIAL IVP PRN (10:52)
[2018-02-15 12:07] LABS: Basophils % 0.2 %; Eosinophils # 0.1 K/mcL (0.0-0.6); Hematocrit 30.9 % (37.5-50.1); Immature Granulocytes % 0.5 % (0-4); Lymphocytes # 0.4 K/mcL (0.6-4.6); Lymphocytes % 6.4 %; Mean Corpuscular HGB Conc 30.7 g/dL (31.6-35.5); Mean Corpuscular Hemoglobin 25.9 pg (28.0-33.3); Mean Corpuscular Volume 84.2 fL (83.0-100.0); Mean Platelet Volume 10.9 fL (9.4-12.4); Monocytes # 0.6 K/mcL (0.0-1.3); Monocytes % 11.3 %; Neutrophils # 4.5 K/mcL (1.6-8.9); Platelet Count 143 K/mcL (140-400); Red Blood Count 3.67 M/mcL (4.19-5.50); Red Cell Distribution Width 17.4 % (11.5-14.5); Segmented Neutrophils % 79.6 %
[2018-02-15] MEDS ORDERED: 0.9 % Sodium Chloride 1,000 ML ONE (12:07)
[2018-02-15 12:08] LABS: Hemoglobin 9.5 g/dL (12.9-16.9)
[2018-02-15 12:47] LABS: Alanine Aminotransferase 16 Units/L (7-52); Albumin 2.5 g/dL (3.5-5.7); Albumin/Globulin Ratio 0.9 (1.1-2.2); Alkaline Phosphatase 138 Units/L (34-104); Aspartate Amino Transferase 31 Units/L (13-39); BUN/Creatinine Ratio 24 (6-26); Bilirubin,Total 0.7 mg/dL (0.3-1.0); Blood Urea Nitrogen 30 mg/dL (8-23); Calcium 7.7 mg/dL (8.6-10.3); Carbon Dioxide 20 mEq/L (23-29); Chloride 112 mEq/L (98-107); Globulin 2.8 g/dL (2.4-3.5); Glucose 152 mg/dL (70-105); Osmolality,Calculated 299 (280-300); Potassium 4.4 mEq/L (3.5-5.1); Sodium 140 mEq/L (136-145); Total Protein 5.3 g/dL (6.4-8.9); eGFR For Non-African Americans 56 (> 60)
--- NOTE | 2018-02-15 13:05 | Oncology Inp Progress Note ---
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 plan to undergo EGD today patient transfused 2 units PBRC and receiving IV iron CBC in AM Qualifiers: Anemia type: iron deficiency Iron deficiency anemia type: chronic blood loss Qualified Code(s): D50.0 - Iron deficiency anemia secondary to blood loss (chronic) (2) BLAYNE (acute kidney injury) Current Visit: Yes Status: Acute Assessment and plan: BLAYNE on CKD III improving 2nd to anemia on IVF (3) DVT (deep venous thrombosis) Current Visit: Yes Status: Inactive Assessment and plan: [facility]C filter placed in 2014 after patient had PE and he was not a candidate for anticoagulatioon due to GI bleed patient has GI bleed this admission. hold any anticoagulation Patient is not candidate for terminal supervisor anticoagulation Qualifiers: DVT location: lower extremity Affected thrombotic vein of extremity: unspecified lower extremity distal vein Chronicity: acute Laterality: right Qualified Code(s): I82.4Z1 - Acute embolism and thrombosis of unspecified deep veins of right distal lower extremity (4) GAVE (gastric antral vascular ectasia) Current Visit: Yes Status: Acute Assessment and plan: plan as above. (5) Goals of care, counseling/discussion Current Visit: Yes Status: Acute Assessment and plan: Patient has received numerous PRBC transfusions IV iron transfusions in the past year. He has history of GI bleed, GAVE, and also thrombosis (DVT, PE, s/p filter). He is poor candidate for anticoagulation. He has been admitted to the hospital multiple times due to GI bleed/thrombosis. Treatments stated above have not been successful. We will talk to patient about what his goals are when it comes to his disease process. Oncology: Subj Interval history: No acute overnight events. Patient has nausea and vomiting this morning. 50cc in green bag. He is awaiting EGD today. He denies sob, chest pain, abdominal pain. - Constitutional Vitals: Vital Signs Temp Pulse Resp BP Pulse Ox 02/15/18 11:19 97.7 F 91 20 97/64 93 02/15/18 06:49 97.9 F 94 18 109/69 91 02/15/18 04:06 98.3 F 86 20 87/55 92 02/14/18 23:37 98.4 F 87 20 91/57 92 02/14/18 22:22 98.3 F 18 114/80 02/14/18 20:13 99 F 98 18 130/76 02/14/18 19:58 98.7 F 98 16 109/72 02/14/18 19:51 98.7 F 96 24 114/73 95 02/14/18 18:22 98.4 F 95 18 109/71 92 02/14/18 15:59 97.9 F 90 18 115/73 100 02/14/18 15:44 98.0 F 95 18 113/75 96 Intake and Output 02/14/18 02/15/18 02/15/18 23:59 07:59 15:59 Intake Total 660 / 660 262.5 / 262.5 Output Total 700 / 700 600 / 600 Balance -40 / -40 -600 / -600 262.5 / 262.5 Intake: IV Fluids 262.5 / 262.5 Venofer 250 MG In 0.9 % Sodium 262.5 / 262.5 Chloride 250 ML @ 130 mls/hr IVPB DAILY [facility] Rx#:[id number] Oral 0 / 0 Blood Product 660 / 660 Rbcs Leuko Poor As-1 Unit 350 / 350 [id number] Rbcs Leuko Poor As-3 2nd Unit 310 / 310 [id number] Output: Urine 700 / 700 600 / 600 Other: Meal NPO Stool Size Smear Stool Consistency loose Stool Color Brown # Voids 1 # Bowel Movements 1 Weight 110.3 kg Blood Glucose* 142 114 152 Patient Weight 02/15/18 23:59 Weight 110.3 kg - Additional findings Additional findings: General: plesant without distress Heart: Regular rate and rhythm with no murmur Lungs: Clear to auscultation bilaterally Abdomen: Soft nontender, nondistended positive bowel sounds Skin: warm and dry, absent rash Extremities: 2+ pedal edema Neuro:alert oriented x3 Vascular: Pedal and radial pulses 2 out of 4 Oncology: Obj Data - Labs CBC & Chem 7: 02/15/18 10:39 02/15/18 10:39 Labs: Laboratory Results - last 24 hr 02/14/18 02/14/18 02/14/18 05:55 12:12 15:52 WBC RBC Hgb Hct MCV MCH MCHC RDW Plt Count MPV Immature Gran % Seg Neutrophils % Lymphocytes % Monocytes % Eosinophils % Basophils % Neutrophils # Lymphocytes # Monocytes # Eosinophils # Basophils # Sodium Potassium Chloride Carbon Dioxide BUN Creatinine Est GFR ( Amer) Est GFR (Non-Af Amer) BUN/Creatinine Ratio Glucose POC Glucose 134 H 141 H Calculated Osmolality Calcium Total Bilirubin AST ALT Alkaline Phosphatase Serum Total Protein Albumin Globulin Albumin/Globulin Ratio Blood Type O POSITIVE Antibody Screen NEGATIVE Crossmatch See Detail 02/14/18 02/14/18 02/15/18 22:18 23:43 10:39 WBC 5.6 RBC 3.67 L Hgb 9.5 L D Hct 30.9 L MCV 84.2 MCH 25.9 L MCHC 30.7 L RDW 17.4 H Plt Count 143 MPV 10.9 Immature Gran % 0.5 Seg Neutrophils % 79.6 Lymphocytes % 6.4 Monocytes % 11.3 Eosinophils % 2.0 Basophils % 0.2 Neutrophils # 4.5 Lymphocytes # 0.4 L Monocytes # 0.6 Eosinophils # 0.1 Basophils # 0.0 Sodium Potassium Chloride Carbon Dioxide BUN Creatinine Est GFR ( Amer) Est GFR (Non-Af Amer) BUN/Creatinine Ratio Glucose POC Glucose 114 H 142 H Calculated Osmolality Calcium Total Bilirubin AST ALT Alkaline Phosphatase Serum Total Protein Albumin Globulin Albumin/Globulin Ratio Blood Type Antibody Screen Crossmatch 02/15/18 10:39 WBC RBC Hgb Hct MCV MCH MCHC RDW Plt Count MPV Immature Gran % Seg Neutrophils % Lymphocytes % Monocytes % Eosinophils % Basophils % Neutrophils # Lymphocytes # Monocytes # Eosinophils # Basophils # Sodium 140 Potassium 4.4 Chloride 112 H Carbon Dioxide 20 L BUN 30 H Creatinine 1.24 Est GFR ( Amer) > 60 Est GFR (Non-Af Amer) 56 L BUN/Creatinine Ratio 24 Glucose 152 H POC Glucose Calculated Osmolality 299 Calcium 7.7 L Total Bilirubin 0.7 AST 31 ALT 16 Alkaline Phosphatase 138 H Serum Total Protein 5.3 L Albumin 2.5 L Globulin 2.8 Albumin/Globulin Ratio 0.9 L Blood Type Antibody Screen Crossmatch - ABG Interpretation ABG results: PT/INR, D-dimer PT 14.3 Seconds (9.4-12.1) H 02/14/18 07:52 Consult Discharge Plan - Plan [facility]errals: [facility] [Primary Care Provider] - 02/21/18 12:15 pm <Win Turciosrey S - Last Filed: 02/15/18 21:11> Date of Encounter: 02/15/18 - Constitutional Vitals: Vital Signs Temp Pulse Resp BP Pulse Ox 02/15/18 18:52 98.0 F 84 16 86/49 96 02/15/18 11:19 97.7 F 91 20 97/64 93 02/15/18 06:49 97.9 F 94 18 109/69 91 02/15/18 04:06 98.3 F 86 20 87/55 92 02/14/18 23:37 98.4 F 87 20 91/57 92 02/14/18 22:22 98.3 F 18 114/80 Intake and Output 02/15/18 02/15/18 02/16/18 08:59 16:59 00:59 Intake Total 1262.5 / 1262.5 120 / 120 Output Total 600 / 600 600 / 600 Balance -600 / -600 1262.5 / 1262.5 -480 / -480 Intake: IV Fluids 1262.5 / 1262.5 0.9 % Sodium Chloride 1,000 ML 1000 / 1000 @ 100 mls/hr IVC .Q10H [facility] Rx#: [id number] Venofer 250 MG In 0.9 % Sodium 262.5 / 262.5 Chloride 250 ML @ 130 mls/hr IVPB DAILY [facility] Rx#:[id number] Oral 0 / 0 120 / 120 Output: Urine 600 / 600 600 / 600 Other: Meal NPO Dinner Percent of Meal Consumed 0% Stool Size Smear Stool Consistency loose Stool Color Brown # Voids 1 # Bowel Movements 1 Weight 110.3 kg Blood Glucose* 114 101 Patient Weight 02/16/18 00:59 Weight 110.3 kg Oncology: Obj Data - Labs CBC & Chem 7: 02/15/18 10:39 02/15/18 10:39 Labs: Laboratory Results - last 24 hr 02/14/18 02/14/18 02/14/18 05:55 22:18 23:43 WBC RBC Hgb Hct MCV MCH MCHC RDW Plt Count MPV Immature Gran % Seg Neutrophils % Lymphocytes % Monocytes % Eosinophils % Basophils % Neutrophils # Lymphocytes # Monocytes # Eosinophils # Basophils # Sodium Potassium Chloride Carbon Dioxide BUN Creatinine Est GFR ( Amer) Est GFR (Non-Af Amer) BUN/Creatinine Ratio Glucose POC Glucose 114 H 142 H Calculated Osmolality Calcium Total Bilirubin AST ALT Alkaline Phosphatase Serum Total Protein Albumin Globulin Albumin/Globulin Ratio Crossmatch See Detail 02/15/18 02/15/18 10:39 10:39 WBC 5.6 RBC 3.67 L Hgb 9.5 L D Hct 30.9 L MCV 84.2 MCH 25.9 L MCHC 30.7 L RDW 17.4 H Plt Count 143 MPV 10.9 Immature Gran % 0.5 Seg Neutrophils % 79.6 Lymphocytes % 6.4 Monocytes % 11.3 Eosinophils % 2.0 Basophils % 0.2 Neutrophils # 4.5 Lymphocytes # 0.4 L Monocytes # 0.6 Eosinophils # 0.1 Basophils # 0.0 Sodium 140 Potassium 4.4 Chloride 112 H Carbon Dioxide 20 L BUN 30 H Creatinine 1.24 Est GFR ( Amer) > 60 Est GFR (Non-Af Amer) 56 L BUN/Creatinine Ratio 24 Glucose 152 H POC Glucose Calculated Osmolality 299 Calcium 7.7 L Total Bilirubin 0.7 AST 31 ALT 16 Alkaline Phosphatase 138 H Serum Total Protein 5.3 L Albumin 2.5 L Globulin 2.8 Albumin/Globulin Ratio 0.9 L Crossmatch - ABG Interpretation ABG results: PT/INR, D-dimer PT 14.3 Seconds (9.4-12.1) H 02/14/18 07:52 - Attending Attestation I examined this patient and my medical decision-making was reviewed with the Advanced Practice Nurse. I agree with the documented findings, disposition and treatment plan as described except to the extent set forth below. GAVE identified on EGD. APC completed. H/H improved to >9. Feeling better. Still with nausea and emesis thought secondary to gastroparesis. Recommend continue reglan before meals and bedtime. Will discuss goals of care moving forward; he was tired today.
[2018-02-15] MEDS ORDERED: *HR* Propofol 200 MG/20 ML VIAL IVP ONE (14:03)
[2018-02-15] MEDS ORDERED: Lidocaine -MPF 2% 2 ML VIAL ONE (14:04)
[2018-02-15] MEDS ORDERED: *HR* PHENYLEPHRINE 1,000 MCG/10 ML SYRINGE IVP ONE (14:27)
--- NOTE | 2018-02-15 15:19 | Internal Med Progress Note ---
Hospitalist Progress Note - Encounter Date of Encounter: 02/15/18 Time of Encounter: 12:30 - Subjective Interval History: Doing better since getting blood. Denies any new chest pain, shortness of breath. - Exam Vitals: Temp Pulse Resp BP Pulse Ox 97.7 F 91 20 97/64 93 02/15/18 11:19 02/15/18 11:19 02/15/18 11:19 02/15/18 11:19 02/15/18 11:19 Exam: GENERAL: Alert, pale appearing, NECK: No jugulovenous distention, No carotid bruits, Carotid pulse normal contour, Supple LUNGS: Lungs clear to auscultation, Good diaphragmatic excursion CARDIAC: Normal S1 and S2; no rubs, murmurs, or gallops ABDOMEN: Abdomen soft, non-tender, BS normal, No masses or organomegaly EXTREMITIES: Extremities normal, no deformities, edema, clubbing or skin discoloration. Good capillary refill., No ulcers - Assessment and Plan (1) Diabetes Current Visit: Yes Status: Chronic Assessment and Plan: Continue sliding scale insulin. Accu-Cheks (2) Anemia Current Visit: Yes Status: Chronic Assessment and Plan: - Chronic anemia with baseline hgb of 7-9 - Likely combination of iron deficiency with chronic blood loss due to GI bleeds , GAVE syndrome - Near baseline at 8.1/31.4 - Symptoms of lightheadedness, likely related to hypotension as above - Continue to monitor, FOBT, H/H - Transfuse as necessary and type and screen - Will give Iron and consult Heme/Onc 02/14-acute on chronic anemia most likely from chronic GI blood loss due to G JARED syndrome. Appreciate gastro-oncology consult. We will give him 1 unit of PRBC and most likely the patient is to undergo a endoscopy tomorrow morning. He will be prepped tonight and will keep nothing by mouth after midnight plan of care discussed with the nurse taking care of the patient. Continue to manage serial CBCs. Continue IV iron. Appreciate hematology, oncology consult. Continue PPI 02/15-status post 2 units PRBCs. Today hemoglobin is 9.5. Plan for endoscopy today. Continue IV iron (3) Hypotension Current Visit: Yes Status: Resolved (4) DVT (deep venous thrombosis) Current Visit: Yes Status: Inactive (5) GI bleed Current Visit: Yes Status: Suspected Assessment and Plan: - 8/9-EGD planned today. Await results and will follow recommendations as per gastroneurology. For now continue twice a day PPI (6) GAVE (gastric antral vascular ectasia) Current Visit: Yes Status: Acute Assessment and Plan: Plan as above for GI bleed (7) CAD (coronary artery disease) Current Visit: Yes Status: Chronic (8) Hypoalbuminemia Current Visit: Yes Status: Acute (9) BLAYNE (acute kidney injury) Current Visit: Yes Status: Acute DVT Prophylaxis: Sequential compression device - Time Spent with Patient Total time spent is greater than 50% in coordination of care (as documented) at patient's floor/unit and/or counseling patient: 25 - 35 minutes Plan of Care Discussed with: patient Internal Medicine: Result - Labs CBC & Chem 7: 02/15/18 10:39 02/15/18 10:39 Labs: Short CBC 02/15/18 Range/Units 10:39 WBC 5.6 (4.3-11.1) K/mcL Hgb 9.5 L D (12.9-16.9) g/dL Hct 30.9 L (37.5-50.1) % Plt Count 143 (140-400) K/mcL Neutrophils # 4.5 (1.6-8.9) K/mcL BMP 02/15/18 10:39 Sodium 140 Potassium 4.4 Chloride 112 H Carbon Dioxide 20 L BUN 30 H Creatinine 1.24 Glucose 152 H Calcium 7.7 L Liver Function 02/15/18 Range/Units 10:39 Total Bilirubin 0.7 (0.3-1.0) mg/dL AST 31 (13-39) Units/L ALT 16 (7-52) Units/L Alkaline Phosphatase 138 H (34-104) Units/L Albumin 2.5 L (3.5-5.7) g/dL - ABG Interpretation ABG results: PT/INR, D-dimer PT 14.3 Seconds (9.4-12.1) H 02/14/18 07:52 - VTE Reasons for not Prescribing Prophylaxis: Medical contraindication Consult Discharge Plan - Plan [facility]errals: [facility]Primary Care Provider[facility] - 02/21/18 12:15 pm (1) Diabetes Qualifiers: Diabetes mellitus type: type 2 Diabetes mellitus terminal gauger supervisor insulin use: with terminal gauger supervisor use Diabetes mellitus complication status: without complication Qualified Code(s): E11.9 - Type 2 diabetes mellitus without complications; Z79.4 - alf (current) use of insulin (2) Anemia Qualifiers: Anemia type: iron deficiency Iron deficiency anemia type: chronic blood loss Qualified Code(s): D50.0 - Iron deficiency anemia secondary to blood loss ( chronic) (3) Hypotension Qualifiers: Hypotension type: unspecified hypotension type Qualified Code(s): I95.9 - Hypotension, unspecified (4) DVT (deep venous thrombosis) Qualifiers: DVT location: lower extremity Affected thrombotic vein of extremity: unspecified lower extremity distal vein Chronicity: acute Laterality: right Qualified Code(s): I82.4Z1 - Acute embolism and thrombosis of unspecified deep veins of right distal lower extremity (5) GI bleed Qualifiers: GI bleed type/associated pathology: angiodysplasia of stomach and duodenum Qualified Code(s): K31.811 - Angiodysplasia of stomach and duodenum with bleeding (7) CAD (coronary artery disease) Qualifiers: Coronary Disease-Associated Artery/Lesion type: unspecified vessel or lesion type [place] vs. transplanted heart: unspecified whether [place] or transplanted heart Associated angina: without angina Qualified Code(s): I25.10 - Atherosclerotic heart disease of [place] coronary artery without angina pectoris
[2018-02-15] MEDS: 0.9 % Sodium Chloride 1,000 ML IVC SCH (18:19)
[2018-02-16] MEDS: Insulin LISPRO 300 UNITS/3 ML VIAL SQ SCH ×5 (00:49→21:40)
[2018-02-16] MEDS: Pantoprazole 40 MG VIAL IVP SCH ×2 (05:50→16:52)
[2018-02-16] MEDS: Folic Acid 1 MG TABLET PO SCH (09:12)
[2018-02-16] MEDS: Torsemide 20 MG TABLET PO SCH (09:12)
[2018-02-16] MEDS: Iron Sucrose Complex 250 MG in 0.9 % Sodium Chloride 250 ML IVPB SCH (09:12)
[2018-02-16] MEDS: Insulin DETEMIR 100 UNIT/ML X5UNITS SQ SCH ×2 (09:12→21:48)
--- NOTE | 2018-02-16 09:16 | Oncology Inp Progress Note ---
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 He also has received IV iron infusions Underwent EGD yesterday with argon plasma coagulation of GAVE EGD showed LA grade a esophagitis with no active bleeding and diffuse inflammation and congestion. GI will repeat endoscopy in 6 weeks for retreatment Patient will have an outpatient appointment GI in 2 weeks Recommend transitioning to by mouth iron and starting vitamin C Qualifiers: Anemia type: iron deficiency Iron deficiency anemia type: chronic blood loss Qualified Code(s): D50.0 - Iron deficiency anemia secondary to blood loss (chronic) (2) BLAYNE (acute kidney injury) Current Visit: Yes Status: Acute Assessment and plan: BLAYNE on CKD III Resolved Secondary to anemia (3) DVT (deep venous thrombosis) Current Visit: Yes Status: Inactive Assessment and plan: recently diagnosed [facility] has IVC filter placed in 2014 after patient had PE and he was not a candidate for anticoagulatioon due to GI bleed patient has GI bleed this admission. hold any anticoagulation Patient is not candidate for joint terminal attack controller anticoagulation Qualifiers: DVT location: lower extremity Affected thrombotic vein of extremity: unspecified lower extremity distal vein Chronicity: acute Laterality: right Qualified Code(s): I82.4Z1 - Acute embolism and thrombosis of unspecified deep veins of right distal lower extremity (4) GAVE (gastric antral vascular ectasia) Current Visit: Yes Status: Acute Assessment and plan: plan as above. (5) Goals of care, counseling/discussion Current Visit: Yes Status: Acute Assessment and plan: I discussed with the patient is goals of care. Patient reports that he continues to want treatment for his anemia including transfusions of blood and IV iron. At this point he has not thought about hospice or palliative care. He reports that with treatment of his GAVE he feels confident that his bleeding will decrease. It was discussed that due to his right lower extremity DVT and IVC filter he has had a increased risk for further blood clots and is a poor candidate for anticoagulation due to his history of GI bleeds. Patient understands that if at any time all the treatment he is receiving is something he wants to discontinue he can transition to hospice. Oncology: Subj Interval history: Patient continues to have nausea vomiting in the morning. He took 2 bites was percussed and then threw up. Otherwise overnight there were no acute events. He underwent EGD yesterday and tolerated the procedure. - Constitutional Vitals: Vital Signs Temp Pulse Resp BP Pulse Ox 02/16/18 07:04 97.9 F 94 15 95/57 94 02/16/18 03:28 98.2 F 84 16 88/50 93 02/15/18 23:15 98.1 F 87 16 93/50 94 02/15/18 18:52 98.0 F 84 16 86/49 96 02/15/18 11:19 97.7 F 91 20 97/64 93 Intake and Output 02/15/18 02/16/18 02/16/18 23:59 07:59 15:59 Intake Total 120 / 120 Output Total 600 / 600 Balance -480 / -480 Intake: Oral 120 / 120 Output: Urine 600 / 600 Other: Meal Dinner Percent of Meal Consumed 0% Weight 110.3 kg Blood Glucose* 101 85 Patient Weight 02/16/18 23:59 Weight 110.3 kg - Additional findings Additional findings: General: pleasant without distress Heart: Regular rate and rhythm with no murmur Lungs: Clear to auscultation bilaterally Abdomen: Soft nontender, nondistended positive bowel sounds Skin: warm and dry, absent rash Extremities: 2+ pedal edema Neuro:alert oriented x3 Vascular: Pedal and radial pulses 2 out of 4 Oncology: Obj Data - Labs CBC & Chem 7: 02/16/18 09:39 02/15/18 10:39 Labs: Laboratory Results - last 24 hr 02/15/18 02/15/18 02/15/18 05:59 10:39 10:39 WBC 5.6 RBC 3.67 L Hgb 9.5 L D Hct 30.9 L MCV 84.2 MCH 25.9 L MCHC 30.7 L RDW 17.4 H Plt Count 143 MPV 10.9 Immature Gran % 0.5 Seg Neutrophils % 79.6 Lymphocytes % 6.4 Monocytes % 11.3 Eosinophils % 2.0 Basophils % 0.2 Neutrophils # 4.5 Lymphocytes # 0.4 L Monocytes # 0.6 Eosinophils # 0.1 Basophils # 0.0 Sodium 140 Potassium 4.4 Chloride 112 H Carbon Dioxide 20 L BUN 30 H Creatinine 1.24 Est GFR ( Amer) > 60 Est GFR (Non-Af Amer) 56 L BUN/Creatinine Ratio 24 Glucose 152 H POC Glucose 114 H Calculated Osmolality 299 Calcium 7.7 L Total Bilirubin 0.7 AST 31 ALT 16 Alkaline Phosphatase 138 H Serum Total Protein 5.3 L Albumin 2.5 L Globulin 2.8 Albumin/Globulin Ratio 0.9 L 02/15/18 02/15/18 12:12 16:41 WBC RBC Hgb Hct MCV MCH MCHC RDW Plt Count MPV Immature Gran % Seg Neutrophils % Lymphocytes % Monocytes % Eosinophils % Basophils % Neutrophils # Lymphocytes # Monocytes # Eosinophils # Basophils # Sodium Potassium Chloride Carbon Dioxide BUN Creatinine Est GFR ( Amer) Est GFR (Non-Af Amer) BUN/Creatinine Ratio Glucose POC Glucose 152 H 101 H Calculated Osmolality Calcium Total Bilirubin AST ALT Alkaline Phosphatase Serum Total Protein Albumin Globulin Albumin/Globulin Ratio - ABG Interpretation ABG results: PT/INR, D-dimer PT 14.3 Seconds (9.4-12.1) H 02/14/18 07:52 Consult Discharge Plan - Plan [facility]errals: [facility] [Primary Care Provider] - 02/21/18 12:15 pm <Alex Turcios S - Last Filed: 02/16/18 19:42> Date of Encounter: 02/16/18 - Constitutional Vitals: Vital Signs Temp Pulse Resp BP Pulse Ox 02/16/18 19:10 98.2 F 102 15 107/70 92 02/16/18 15:27 97.8 F 104 16 96/58 91 02/16/18 11:47 98.1 F 91 15 100/60 93 02/16/18 07:04 97.9 F 94 15 95/57 94 02/16/18 03:28 98.2 F 84 16 88/50 93 02/15/18 23:15 98.1 F 87 16 93/50 94 Intake and Output 02/16/18 02/16/18 02/17/18 08:59 16:59 00:59 Intake Total 120 / 120 Output Total 350 / 350 100 / 100 Balance -350 / -350 20 / 20 Intake: Oral 120 / 120 Output: Urine 350 / 350 100 / 100 Other: Meal Dinner Percent of Meal Consumed 40% Stool Size Moderate Stool Consistency formed Stool Characteristics Normal for Patient Stool Color Brown # Bowel Movements 1 Weight 110.3 kg Blood Glucose* 85 181 Patient Weight 02/17/18 00:59 Weight 110.3 kg Oncology: Obj Data - Labs CBC & Chem 7: 02/16/18 09:39 02/15/18 10:39 Labs: Laboratory Results - last 24 hr 02/15/18 02/15/18 02/15/18 05:59 12:12 16:41 WBC RBC Hgb Hct MCV MCH MCHC RDW Plt Count MPV Immature Gran % Seg Neutrophils % Lymphocytes % Monocytes % Eosinophils % Basophils % Neutrophils # Lymphocytes # Monocytes # Eosinophils # Basophils # POC Glucose 114 H 152 H 101 H Stool Occult Blood 02/15/18 02/16/18 02/16/18 21:59 07:04 09:39 WBC 9.2 D RBC 3.85 L Hgb 10.0 L Hct 32.7 L MCV 84.9 MCH 26.0 L MCHC 30.6 L RDW 17.7 H Plt Count 174 MPV 9.9 Immature Gran % 0.7 Seg Neutrophils % 83.0 Lymphocytes % 5.1 Monocytes % 9.9 Eosinophils % 1.1 Basophils % 0.2 Neutrophils # 7.6 Lymphocytes # 0.5 L Monocytes # 0.9 Eosinophils # 0.1 Basophils # 0.0 POC Glucose 101 H 85 Stool Occult Blood 02/16/18 02/16/18 10:40 11:45 WBC RBC Hgb Hct MCV MCH MCHC RDW Plt Count MPV Immature Gran % Seg Neutrophils % Lymphocytes % Monocytes % Eosinophils % Basophils % Neutrophils # Lymphocytes # Monocytes # Eosinophils # Basophils # POC Glucose 144 H Stool Occult Blood Positive A - ABG Interpretation ABG results: PT/INR, D-dimer PT 14.3 Seconds (9.4-12.1) H 02/14/18 07:52 - Attending Attestation I examined this patient and my medical decision-making was reviewed with the resident. I agree with the documented findings, disposition and treatment plan as described except to the extent set forth below. He continues to struggle. Hemoglobin remains stable which is encouraging. No specific new recommendations from my perspective. I would not utilize iron and vitamin C given his other gastrointestinal complaints; it is unlikely he will have significant response given history and CK D. This will be discontinued. I did review the case with gastroenterology today personally. We both agree to anticoagulation would be recommended against in this gentleman. Supportive care for his DVT will be pursued including elevation, cool wraps and mobilization. I also discussed with this gentleman today overall poor prognosis given recurrent GI hemorrhage in need of frequent hematologic support , cirrhosis and gastroparesis. Expectations were also reviewed. He has had a very complicated and complex medical course over the past year. At this time, he is uncertain if he wants to pursue an aggressive approach and like to think about this. For the time being, we will continue with our current care plan with frequent CBCs and office visits, and this will be an ongoing conversation.
[2018-02-16] MEDS: Ondansetron 4 MG/2 ML VIAL IVP PRN ×2 (09:31→22:06)
[2018-02-16 09:59] LABS: Basophils % 0.2 %; Eosinophils # 0.1 K/mcL (0.0-0.6); Eosinophils % 1.1 %; Hematocrit 32.7 % (37.5-50.1); Immature Granulocytes % 0.7 % (0-4); Lymphocytes # 0.5 K/mcL (0.6-4.6); Lymphocytes % 5.1 %; Mean Corpuscular HGB Conc 30.6 g/dL (31.6-35.5); Mean Corpuscular Volume 84.9 fL (83.0-100.0); Mean Platelet Volume 9.9 fL (9.4-12.4); Monocytes # 0.9 K/mcL (0.0-1.3); Monocytes % 9.9 %; Neutrophils # 7.6 K/mcL (1.6-8.9); Platelet Count 174 K/mcL (140-400); Red Blood Count 3.85 M/mcL (4.19-5.50); Red Cell Distribution Width 17.7 % (11.5-14.5)
--- NOTE | 2018-02-16 11:45 | Internal Med Progress Note ---
Hospitalist Progress Note - Encounter Date of Encounter: 02/16/18 Time of Encounter: 11:43 - Subjective Interval History: Patient had dry heaving earlier this morning however denies any chest pain, shortness. He attributes it to weaning effect of anesthesia. - Exam Vitals: Temp Pulse Resp BP Pulse Ox 97.9 F 94 15 95/57 94 02/16/18 07:04 02/16/18 07:04 02/16/18 07:04 02/16/18 07:04 02/16/18 07:04 Exam: GENERAL: Alert, moderate distress, cooperative NECK: No jugulovenous distention, No carotid bruits, Carotid pulse normal contour, Supple LUNGS: Lungs clear to auscultation, Good diaphragmatic excursion CARDIAC: Normal S1 and S2; no rubs, murmurs, or gallops ABDOMEN: Abdomen soft, non-tender, BS normal, No masses or organomegaly EXTREMITIES: Extremities normal, no deformities, edema, clubbing or skin discoloration. Good capillary refill., No ulcers Rest of the exam is non contributory - Assessment and Plan (1) Diabetes Current Visit: Yes Status: Chronic Assessment and Plan: Continue sliding scale insulin. Accu-Cheks (2) Anemia Current Visit: Yes Status: Chronic Assessment and Plan: - Chronic anemia with baseline hgb of 7-9 - Likely combination of iron deficiency with chronic blood loss due to GI bleeds , GAVE syndrome - Near baseline at 8.1/31.4 - Symptoms of lightheadedness, likely related to hypotension as above - Continue to monitor, FOBT, H/H - Transfuse as necessary and type and screen - Will give Iron and consult Heme/Onc 02/14-acute on chronic anemia most likely from chronic GI blood loss due to G JARED syndrome. Appreciate gastro-oncology consult. We will give him 1 unit of PRBC and most likely the patient is to undergo a endoscopy tomorrow morning. He will be prepped tonight and will keep nothing by mouth after midnight plan of care discussed with the nurse taking care of the patient. Continue to manage serial CBCs. Continue IV iron. Appreciate hematology, oncology consult. Continue PPI 02/15-status post 2 units PRBCs. Today hemoglobin is 9.5. Plan for endoscopy today. Continue IV iron 02/16-he has received 3 days of IV iron and I am going to discontinue it today. His hemoglobin is improved. Endoscopy shows gastric antral vascular ectasia which has been treated with APC. Over the next 48 hours a be closely monitoring his hemoglobins and gastroenterology will be following up. (3) Hypotension Current Visit: Yes Status: Resolved (4) DVT (deep venous thrombosis) Current Visit: Yes Status: Inactive (5) GI bleed Current Visit: Yes Status: Suspected Assessment and Plan: - 02/15-EGD planned today. Await results and will follow recommendations as per gastroneurology. For now continue twice a day PPI 02/16-status post EGD. Shows LA esophagitis as well as gastritis. Gastric antral vascular ectasia seen and treated with argon plasma coagulation. Repeat procedure recommended in 6 weeks. We will follow serial hemoglobins. Continue PPI for now. Can advance diet as tolerated. He also needs to be placed as per physical therapy to a snf facility and care management is working towards it. (6) GAVE (gastric antral vascular ectasia) Current Visit: Yes Status: Acute (7) CAD (coronary artery disease) Current Visit: Yes Status: Chronic (8) Hypoalbuminemia Current Visit: Yes Status: Acute (9) BLAYNE (acute kidney injury) Current Visit: Yes Status: Acute - Time Spent with Patient Total time spent is greater than 50% in coordination of care (as documented) at patient's floor/unit and/or counseling patient: Greater than 35 minutes Plan of Care Discussed with: patient Internal Medicine: Result - Labs CBC & Chem 7: 02/16/18 09:39 02/15/18 10:39 Labs: Short CBC 02/15/18 02/16/18 Range/Units 10:39 09:39 WBC 5.6 9.2 D (4.3-11.1) K/mcL Hgb 9.5 L D 10.0 L (12.9-16.9) g/dL Hct 30.9 L 32.7 L (37.5-50.1) % Plt Count 143 174 (140-400) K/mcL Neutrophils # 4.5 7.6 (1.6-8.9) K/mcL BMP 02/15/18 10:39 Sodium 140 Potassium 4.4 Chloride 112 H Carbon Dioxide 20 L BUN 30 H Creatinine 1.24 Glucose 152 H Calcium 7.7 L Liver Function 02/15/18 Range/Units 10:39 Total Bilirubin 0.7 (0.3-1.0) mg/dL AST 31 (13-39) Units/L ALT 16 (7-52) Units/L Alkaline Phosphatase 138 H (34-104) Units/L Albumin 2.5 L (3.5-5.7) g/dL - ABG Interpretation ABG results: PT/INR, D-dimer PT 14.3 Seconds (9.4-12.1) H 02/14/18 07:52 - VTE Reasons for not Prescribing Prophylaxis: Medical contraindication Consult Discharge Plan - Plan [facility]errals: [facility] [Primary Care Provider] - 02/21/18 12:15 pm (1) Diabetes Qualifiers: Diabetes mellitus type: type 2 Diabetes mellitus intermediate frame tender insulin use: with assisted use Diabetes mellitus complication status: without complication Qualified Code(s): E11.9 - Type 2 diabetes mellitus without complications; Z79.4 - half-way (current) use of insulin (2) Anemia Qualifiers: Anemia type: iron deficiency Iron deficiency anemia type: chronic blood loss Qualified Code(s): D50.0 - Iron deficiency anemia secondary to blood loss ( chronic) (3) Hypotension Qualifiers: Hypotension type: unspecified hypotension type Qualified Code(s): I95.9 - Hypotension, unspecified (4) DVT (deep venous thrombosis) Qualifiers: DVT location: lower extremity Affected thrombotic vein of extremity: unspecified lower extremity distal vein Chronicity: acute Laterality: right Qualified Code(s): I82.4Z1 - Acute embolism and thrombosis of unspecified deep veins of right distal lower extremity (5) GI bleed Qualifiers: GI bleed type/associated pathology: angiodysplasia of stomach and duodenum Qualified Code(s): K31.811 - Angiodysplasia of stomach and duodenum with bleeding (7) CAD (coronary artery disease) Qualifiers: Coronary Disease-Associated Artery/Lesion type: unspecified vessel or lesion type [place] vs. transplanted heart: unspecified whether [place] or transplanted heart Associated angina: without angina Qualified Code(s): I25.10 - Atherosclerotic heart disease of [place] coronary artery without angina pectoris
[2018-02-16] MEDS: Acetaminophen 325 MG TABLET PO PRN (22:23)
[2018-02-17 05:51] LABS: Basophils % 0.2 %; Eosinophils # 0.1 K/mcL (0.0-0.6); Eosinophils % 1.7 %; Hematocrit 29.6 % (37.5-50.1); Hemoglobin 9.1 g/dL (12.9-16.9); Immature Granulocytes % 0.6 % (0-4); Lymphocytes # 0.4 K/mcL (0.6-4.6); Lymphocytes % 7.8 %; Mean Corpuscular HGB Conc 30.7 g/dL (31.6-35.5); Mean Corpuscular Hemoglobin 26.1 pg (28.0-33.3); Mean Corpuscular Volume 85.1 fL (83.0-100.0); Mean Platelet Volume 10.2 fL (9.4-12.4); Monocytes # 0.7 K/mcL (0.0-1.3); Monocytes % 12.6 %; Platelet Count 129 K/mcL (140-400); Red Blood Count 3.48 M/mcL (4.19-5.50); Red Cell Distribution Width 18.2 % (11.5-14.5); Segmented Neutrophils % 77.1 %
[2018-02-17] MEDS: Pantoprazole 40 MG VIAL IVP SCH ×2 (06:23→17:09)
[2018-02-17] MEDS: Folic Acid 1 MG TABLET PO SCH (08:31)
[2018-02-17] MEDS: Torsemide 20 MG TABLET PO SCH (08:32)
[2018-02-17] MEDS: Insulin DETEMIR 100 UNIT/ML X5UNITS SQ SCH ×2 (08:32→22:38)
[2018-02-17] MEDS: Insulin LISPRO 300 UNITS/3 ML VIAL SQ SCH ×4 (08:32→22:37)
[2018-02-17 11:24] LABS: Hematocrit 30.4 % (37.5-50.1); Hemoglobin 9.3 g/dL (12.9-16.9)
--- NOTE | 2018-02-17 11:44 | Oncology Inp Progress Note ---
Date of Encounter: 02/17/18 Time of Encounter: 11:45 (1) Deep vein thrombosis (DVT) Current Visit: Yes Status: Acute Assessment and plan: He had an acute right leg deep vein thrombosis. He has not an anticoagulation candidate. I did discuss with Dr. Schafer, and he agrees. His risk of hemorrhage is severe. Continue supportive measures. 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 He is status post APC. Hemoglobin is stable after transfusion as well as IV iron. If stable, hopeful discharge early this week to either home with home health or [facility]. Oncology: Subj Interval history: He is feeling better today. Rested comfortably. Had a formed bowel movement this morning. Was able to keep down his scrambled eggs and a piece of alegria. No nausea. He denies any bleeding symptoms of epistaxis, hemoptysis, hematemesis, melena or hematochezia. Right leg pain is persistent but controlled. - Constitutional Vitals: Vital Signs Temp Pulse Resp BP Pulse Ox 02/17/18 08:06 97.9 F 87 18 90/52 91 02/16/18 23:08 97.9 F 107 15 92/61 93 02/16/18 22:02 126/81 02/16/18 19:10 98.2 F 102 15 107/70 92 02/16/18 15:27 97.8 F 104 16 96/58 91 02/16/18 11:47 98.1 F 91 15 100/60 93 Intake and Output 02/17/18 02/17/18 02/17/18 00:59 08:59 16:59 Intake Total 120 / 120 240 / 240 Output Total 100 / 100 175 / 175 Balance 20 / 20 -175 / -175 240 / 240 Intake: Oral 120 / 120 240 / 240 Output: Urine 100 / 100 100 / 100 Emesis 75 / 75 Other: Meal Dinner Breakfast Percent of Meal Consumed 40% 10% Blood Glucose* 167 193 General appearance: cooperative, no acute distress, obese - Head Head exam: Present: atraumatic, normal inspection, normocephalic - Eye Eye exam: Present: normal appearance, conjuntiva pink, sclera anicteric - ENT ENT exam: Present: mucous membranes moist, normal oropharynx - Neck Neck exam: Present: full ROM, normal inspection - Respiratory Respiratory exam: Present: CTAB - Cardiovascular Cardiovascular exam: Present: RRR - GI/Abdominal GI/Abdominal exam: Present: distended, normal bowel sounds, soft - Extremities Exam Extremities exam: Present: pedal edema - Neurological Exam Neurological exam: Present: alert, CN II-XII intact, oriented X3, no focal deficits Oncology: Obj Data - Labs CBC & Chem 7: 02/17/18 11:07 02/15/18 10:39 Labs: Laboratory Results - last 24 hr 02/15/18 02/16/18 02/16/18 21:59 07:04 09:25 WBC RBC Hgb Hct MCV MCH MCHC RDW Plt Count MPV Immature Gran % Seg Neutrophils % Lymphocytes % Monocytes % Eosinophils % Basophils % Neutrophils # Lymphocytes # Monocytes # Eosinophils # Basophils # POC Glucose 101 H 85 103 H 02/16/18 02/16/18 02/17/18 11:45 15:26 05:05 WBC 5.2 RBC 3.48 L Hgb 9.1 L Hct 29.6 L MCV 85.1 MCH 26.1 L MCHC 30.7 L RDW 18.2 H Plt Count 129 L MPV 10.2 Immature Gran % 0.6 Seg Neutrophils % 77.1 Lymphocytes % 7.8 Monocytes % 12.6 Eosinophils % 1.7 Basophils % 0.2 Neutrophils # 4.0 Lymphocytes # 0.4 L Monocytes # 0.7 Eosinophils # 0.1 Basophils # 0.0 POC Glucose 144 H 181 H 02/17/18 11:07 WBC RBC Hgb 9.3 L Hct 30.4 L MCV MCH MCHC RDW Plt Count MPV Immature Gran % Seg Neutrophils % Lymphocytes % Monocytes % Eosinophils % Basophils % Neutrophils # Lymphocytes # Monocytes # Eosinophils # Basophils # POC Glucose - ABG Interpretation ABG results: PT/INR, D-dimer PT 14.3 Seconds (9.4-12.1) H 02/14/18 07:52 Consult Discharge Plan - Plan [facility]errals: [facility] [Primary Care Provider] - 02/21/18 12:15 pm
--- NOTE | 2018-02-17 15:24 | Internal Med Progress Note ---
Hospitalist Progress Note - Encounter Date of Encounter: 02/17/18 Time of Encounter: 10:30 - Subjective Interval History: Patient reports 6-7 weeks of clear, frothy emesis intermittently. Reports some nausea overnight, but improved over previously. Also reports improvement in diarrhea sx. Denies any chest pain, shortness of breath, vomiting, or other symptoms of note. - Exam Vitals: Temp Pulse Resp BP Pulse Ox 97.8 F 97 18 105/67 91 02/17/18 11:54 02/17/18 11:54 02/17/18 11:54 02/17/18 11:54 02/17/18 11:54 Exam: PHYSICAL EXAMINIATION: GENERAL: Alert, mild distress, cooperative, A&O x3 NECK: No jugulovenous distention, No carotid bruits, Carotid pulse normal contour, Supple LUNGS: Lungs clear to auscultation, Good diaphragmatic excursion CARDIAC: Normal S1 and S2; no rubs, murmurs, or gallops ABDOMEN: Abdomen soft, non-tender, BS normal, No masses or organomegaly EXTREMITIES: Extremities normal, no deformities, edema, clubbing or skin discoloration. Good capillary refill., No ulcers PSYCHIATRIC: Normal mood and affect SKIN: Dry and intact - Assessment and Plan (1) GAVE (gastric antral vascular ectasia) Current Visit: Yes Status: Acute Assessment and Plan: Plan to have pt. f/u w/Dr. Schafer in his office w/i two weeks of discharge and repeat EGD in 6 weeks. (2) Hypoalbuminemia Current Visit: Yes Status: Acute Assessment and Plan: Albumin of 2.5, likely at least in part due to poor nutrition. Repeat. Patient denies history of liver disease, kidney disease. Will replace albumin PRN with goal of improving BP and edema (3) BLAYNE (acute kidney injury) Current Visit: Yes Status: Acute Assessment and Plan: GFR improvement from 50 to 56. Creatinine improvement from 1.38 to 1.24. Repeat in a.m. labs and monitor. Gentle IV fluid hydration PRN. (4) Hypotension Current Visit: Yes Status: Acute Assessment and Plan: Continued hypotension likely d/t decreased oral intake, diarrhea, vomiting, history of GI bleeds. 105/67 this morning. Continue fluids, add albumin, follow- up w/GI as OP, Zofran, immodium. Continue to monitor pt. and f/u labs closely. (5) DVT (deep venous thrombosis) Current Visit: Yes Status: Acute Assessment and Plan: Diagnosed at [place] last Monday. Not on AC due to very significant history of GI bleeds. 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 Found to have no DVT currently and will be monitored closely. No anticoagulation d/t GI bleed hx. (6) Diabetes Current Visit: Yes Status: Chronic Assessment and Plan: Continue sliding scale insulin. BG checks ACHS (7) Anemia Current Visit: Yes Status: Chronic Assessment and Plan: Chronic anemia w/Hgb of 9.3 today (down from 10.0 on 02/16, but up from 7.2 on 02/14). Likely combination of iron deficiency with chronic blood loss due to GI bleeds, GAVE syndrome. Some dizziness likely d/t anemia. Monitor H/H Q6HR. Transfuse as necessary and type and screen. Received 2 units of PRBCs on 02/15 and IV iron 3 days[facility]/H and DVT in rt. leg. Continue PPI. Endoscopy on 02/15 shows L a grade a reflux esophagitis, chronic gastritis, gastric antral vascular ectasia treated with argon plasma coagulation. No specimens collected. Repeat upper endoscopy in 6 weeks [address] return to Dr. Schafer's office within 2 weeks. (8) CAD (coronary artery disease) Current Visit: Yes Status: Chronic Assessment and Plan: Chronic, no current CP. Will continue BB when BP is more stable. Currently hypotensive. No ASA due to GI bleeds. (9) GI bleed Current Visit: Yes Status: Suspected Assessment and Plan: - EGD shows LA esophagitis as well as gastritis. Gastric antral vascular ectasia seen and treated with argon plasma coagulation. Repeat procedure recommended in 6 weeks. H/H Q6H. Continue PPI. Advance diet as tolerated. He also needs to be placed as per physical therapy to a alf facility and care management is working towards it. - Time Spent with Patient Total time spent is greater than 50% in coordination of care (as documented) at patient's floor/unit and/or counseling patient: 25 - 35 minutes Plan of Care Discussed with: patient Internal Medicine: Result - Labs CBC & Chem 7: 02/17/18 11:07 02/15/18 10:39 Labs: Short CBC 02/17/18 02/17/18 Range/Units 05:05 11:07 WBC 5.2 (4.3-11.1) K/mcL Hgb 9.1 L 9.3 L (12.9-16.9) g/dL Hct 29.6 L 30.4 L (37.5-50.1) % Plt Count 129 L (140-400) K/mcL Neutrophils # 4.0 (1.6-8.9) K/mcL - ABG Interpretation ABG results: PT/INR, D-dimer PT 14.3 Seconds (9.4-12.1) H 02/14/18 07:52 - VTE Reasons for not Prescribing Prophylaxis: Medical contraindication Consult Discharge Plan - Plan Referrals: WILMA,PCP [Primary Care Provider] - 02/21/18 12:15 pm (4) Hypotension Qualifiers: Hypotension type: unspecified hypotension type Qualified Code(s): I95.9 - Hypotension, unspecified (5) DVT (deep venous thrombosis) Qualifiers: DVT location: lower extremity Affected thrombotic vein of extremity: unspecified lower extremity distal vein Chronicity: acute Laterality: right Qualified Code(s): I82.4Z1 - Acute embolism and thrombosis of unspecified deep veins of right distal lower extremity (6) Diabetes Qualifiers: Diabetes mellitus type: type 2 Diabetes mellitus fur floor worker insulin use: with fur floor worker use Diabetes mellitus complication status: without complication Qualified Code(s): E11.9 - Type 2 diabetes mellitus without complications; Z79.4 - half-way (current) use of insulin (7) Anemia Qualifiers: Anemia type: iron deficiency Iron deficiency anemia type: chronic blood loss Qualified Code(s): D50.0 - Iron deficiency anemia secondary to blood loss ( chronic) (8) CAD (coronary artery disease) Qualifiers: Coronary Disease-Associated Artery/Lesion type: unspecified vessel or lesion type [place] vs. transplanted heart: unspecified whether [place] or transplanted heart Associated angina: without angina Qualified Code(s): I25.10 - Atherosclerotic heart disease of [place] coronary artery without angina pectoris (9) GI bleed Qualifiers: GI bleed type/associated pathology: angiodysplasia of stomach and duodenum Qualified Code(s): K31.811 - Angiodysplasia of stomach and duodenum with bleeding
[2018-02-17 17:14] LABS: Hematocrit 31.1 % (37.5-50.1); Hemoglobin 9.6 g/dL (12.9-16.9)
[2018-02-17] MEDS: Ondansetron 4 MG/2 ML VIAL IVP PRN (17:19)
[2018-02-17] MEDS ORDERED: Ondansetron ODT 4 MG TAB.RAPDIS SL ONE (22:28)
[2018-02-17 23:09] LABS: Hematocrit 32.2 % (37.5-50.1); Hemoglobin 9.8 g/dL (12.9-16.9)
[2018-02-18] MEDS: Pantoprazole 40 MG VIAL IVP SCH ×2 (05:49→15:52)
[2018-02-18] MEDS: Ondansetron 4 MG/2 ML VIAL IVP PRN (06:07)
[2018-02-18 06:29] LABS: Basophils % 0.1 %; Eosinophils # 0.1 K/mcL (0.0-0.6); Eosinophils % 1.8 %; Hematocrit 32.5 % (37.5-50.1); Hemoglobin 9.7 g/dL (12.9-16.9); Immature Granulocytes % 0.6 % (0-4); Lymphocytes # 0.4 K/mcL (0.6-4.6); Lymphocytes % 5.5 %; Mean Corpuscular HGB Conc 29.8 g/dL (31.6-35.5); Mean Corpuscular Hemoglobin 25.5 pg (28.0-33.3); Mean Corpuscular Volume 85.3 fL (83.0-100.0); Mean Platelet Volume 9.7 fL (9.4-12.4); Neutrophils # 5.5 K/mcL (1.6-8.9); Platelet Count 149 K/mcL (140-400); Red Blood Count 3.81 M/mcL (4.19-5.50); Red Cell Distribution Width 18.6 % (11.5-14.5)
[2018-02-18 06:53] LABS: Alanine Aminotransferase 20 Units/L (7-52); Albumin 2.5 g/dL (3.5-5.7); Albumin/Globulin Ratio 0.9 (1.1-2.2); Alkaline Phosphatase 201 Units/L (34-104); Aspartate Amino Transferase 41 Units/L (13-39); BUN/Creatinine Ratio 22 (6-26); Bilirubin,Total 0.4 mg/dL (0.3-1.0); Blood Urea Nitrogen 24 mg/dL (8-23); Calcium 7.4 mg/dL (8.6-10.3); Carbon Dioxide 21 mEq/L (23-29); Chloride 112 mEq/L (98-107); Globulin 2.9 g/dL (2.4-3.5); Glucose 84 mg/dL (70-105); Osmolality,Calculated 299 (280-300); Sodium 143 mEq/L (136-145); Total Protein 5.4 g/dL (6.4-8.9); eGFR For Non-African Americans > 60 (> 60)
[2018-02-18] MEDS: Insulin LISPRO 300 UNITS/3 ML VIAL SQ SCH ×4 (07:28→22:15)
[2018-02-18] MEDS: Folic Acid 1 MG TABLET PO SCH (08:49)
[2018-02-18] MEDS: Torsemide 20 MG TABLET PO SCH (08:49)
[2018-02-18] MEDS: Insulin DETEMIR 100 UNIT/ML X5UNITS SQ SCH ×2 (08:50→22:15)
[2018-02-18 09:09] LABS: Hematocrit 35.1 % (37.5-50.1); Hemoglobin 10.5 g/dL (12.9-16.9)
[2018-02-18] MEDS ORDERED: *HR* Promethazine 25 MG/ML VIAL IVP PRN (09:52)
[2018-02-18 14:38] LABS: Hematocrit 32.8 % (37.5-50.1); Hemoglobin 9.9 g/dL (12.9-16.9)
--- NOTE | 2018-02-18 14:46 | Internal Med Progress Note ---
Hospitalist Progress Note - Encounter Date of Encounter: 02/18/18 Time of Encounter: 09:40 - Subjective Interval History: Reports some nausea overnight with vomiting. Also reports improvement in diarrhea sx. Denies any chest pain, shortness of breath, vomiting, or other symptoms of note. - Exam Vitals: Temp Pulse Resp BP Pulse Ox 97.7 F 112 17 140/79 99 02/18/18 10:21 02/18/18 10:21 02/18/18 10:21 02/18/18 10:21 02/18/18 10:21 Exam: PHYSICAL EXAMINIATION: GENERAL: Alert, mild distress d/t nausea/vomiting, cooperative, A&O x3 NECK: No jugulovenous distention, No carotid bruits, Carotid pulse normal contour, Supple LUNGS: Lungs clear to auscultation, Good diaphragmatic excursion CARDIAC: Normal S1 and S2; no rubs, murmurs, or gallops ABDOMEN: Abdomen soft, non-tender, BS normal, No masses or organomegaly EXTREMITIES: Extremities normal, no deformities, edema, clubbing or skin discoloration. Good capillary refill., No ulcers PSYCHIATRIC: Normal mood and affect SKIN: Dry and intact - Assessment and Plan (1) GAVE (gastric antral vascular ectasia) Current Visit: Yes Status: Acute Assessment and Plan: Plan to have pt. f/u w/Dr. Schafer in his office w/i two weeks of discharge and repeat EGD in 6 weeks. (2) Hypoalbuminemia Current Visit: Yes Status: Acute Assessment and Plan: Albumin of 2.5, likely at least in part due to poor nutrition. Repeat. Patient denies history of liver disease, kidney disease. Gentle hydration and monitor f/ u labs. (3) BLAYNE (acute kidney injury) Current Visit: Yes Status: Acute Assessment and Plan: GFR improvement 56 to >60. Creatinine improvement from 1.24 to 1.08. Repeat in a.m. labs and monitor. Gentle IV fluid hydration PRN. (4) Hypotension Current Visit: Yes Status: Acute Assessment and Plan: Improved to 140/79 this morning. Continue fluids, gentle IV fluid hydration, follow-up w/GI as OP, Zofran, immodium. Continue to monitor pt. and f/u labs closely. (5) DVT (deep venous thrombosis) Current Visit: Yes Status: Acute Assessment and Plan: Diagnosed at [place] last Monday. Not on AC due to very significant history of GI bleeds. 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 Found to have no DVT currently and will be monitored closely. No anticoagulation d/t GI bleed hx. (6) Diabetes Current Visit: Yes Status: Chronic Assessment and Plan: Continue sliding scale insulin. BG checks ACHS (7) Anemia Current Visit: Yes Status: Chronic Assessment and Plan: Chronic anemia w/Hgb of 10.5 then 9.9 today. Likely combination of iron deficiency with chronic blood loss due to GI bleeds, GAVE syndrome. Some dizziness likely d/t anemia. Monitor H/H Q6HR. Transfuse as necessary and type and screen. Received 2 units of PRBCs on 02/15 and IV iron 3 days. Pt. seen by [facility] w/recommendation to monitor H/H and DVT in rt. leg. Continue PPI. Endoscopy on 02/15 shows L a grade a reflux esophagitis, chronic gastritis, gastric antral vascular ectasia treated with argon plasma coagulation. No specimens collected. Repeat upper endoscopy in 6 weeks and return to Dr. Schafer' s office within 2 weeks. (8) CAD (coronary artery disease) Current Visit: Yes Status: Chronic Assessment and Plan: Chronic, no current CP. Will continue BB when BP is more stable. Currently normotensive. No ASA due to GI bleeds. (9) GI bleed Current Visit: Yes Status: Suspected Assessment and Plan: - EGD shows LA esophagitis as well as gastritis. Gastric antral vascular ectasia seen and treated with argon plasma coagulation. Repeat procedure recommended in 6 weeks. H/H Q6H. Continue PPI. Advance diet as tolerated. He also needs to be placed as per physical therapy to a assisted facility and care management is working towards it. - Summary of Assessment and Plan Summary of Assessment and Plan: Continue to monitor H/H and labs. Control N/V. Hold anticoagulation d/t bleeding and continue supportive measures per Oncology. Hopefully discharge early this week to home w/home health or [place] rehab when stable. - Time Spent with Patient Total time spent is greater than 50% in coordination of care (as documented) at patient's floor/unit and/or counseling patient: less than 15 minutes Plan of Care Discussed with: patient Internal Medicine: Result - Labs CBC & Chem 7: 02/18/18 14:26 02/18/18 05:38 Labs: Short CBC 02/17/18 02/17/18 02/18/18 Range/Units 16:44 22:58 05:38 WBC 7.1 (4.3-11.1) K/mcL Hgb 9.6 L 9.8 L 9.7 L (12.9-16.9) g/dL Hct 31.1 L 32.2 L 32.5 L (37.5-50.1) % Plt Count 149 (140-400) K/mcL Neutrophils # 5.5 (1.6-8.9) K/mcL 02/18/18 02/18/18 Range/Units 08:47 14:26 WBC (4.3-11.1) K/mcL Hgb 10.5 L 9.9 L (12.9-16.9) g/dL Hct 35.1 L 32.8 L (37.5-50.1) % Plt Count (140-400) K/mcL Neutrophils # (1.6-8.9) K/mcL BMP 02/18/18 05:38 Sodium 143 Potassium 4.0 Chloride 112 H Carbon Dioxide 21 L BUN 24 H Creatinine 1.08 Glucose 84 Calcium 7.4 L Liver Function 02/17/18 02/18/18 Range/Units 16:44 05:38 Total Bilirubin 0.4 (0.3-1.0) mg/dL AST 41 H (13-39) Units/L ALT 20 (7-52) Units/L Alkaline Phosphatase 201 H (34-104) Units/L Albumin 2.4 L 2.5 L (3.5-5.7) g/dL - ABG Interpretation ABG results: PT/INR, D-dimer PT 14.3 Seconds (9.4-12.1) H 02/14/18 07:52 - VTE Reasons for not Prescribing Prophylaxis: Medical contraindication Consult Discharge Plan - Plan [facility]errals: [facility] [[facility] Care Provider[facility] - 02/21/18 12:15 pm (4) Hypotension Qualifiers: Hypotension type: unspecified hypotension type Qualified Code(s): I95.9 - Hypotension, unspecified (5) DVT (deep venous thrombosis) Qualifiers: DVT location: lower extremity Affected thrombotic vein of extremity: unspecified lower extremity distal vein Chronicity: acute Laterality: right Qualified Code(s): I82.4Z1 - Acute embolism and thrombosis of unspecified deep veins of right distal lower extremity (6) Diabetes Qualifiers: Diabetes mellitus type: type 2 Diabetes mellitus prison insulin use: with prison use Diabetes mellitus complication status: without complication Qualified Code(s): E11.9 - Type 2 diabetes mellitus without complications; Z79.4 - group home (current) use of insulin (7) Anemia Qualifiers: Anemia type: iron deficiency Iron deficiency anemia type: chronic blood loss Qualified Code(s): D50.0 - Iron deficiency anemia secondary to blood loss ( chronic) (8) CAD (coronary artery disease) Qualifiers: Coronary Disease-Associated Artery/Lesion type: unspecified vessel or lesion type [place] vs. transplanted heart: unspecified whether [place] or transplanted heart Associated angina: without angina Qualified Code(s): I25.10 - Atherosclerotic heart disease of [place] coronary artery without angina pectoris (9) GI bleed Qualifiers: GI bleed type/associated pathology: angiodysplasia of stomach and duodenum Qualified Code(s): K31.811 - Angiodysplasia of stomach and duodenum with bleeding
[2018-02-18] MEDS: 0.9 % Sodium Chloride 1,000 ML IVC SCH (15:53)
[2018-02-18 22:28] LABS: Hematocrit 33.2 % (37.5-50.1); Hemoglobin 10.1 g/dL (12.9-16.9)
[2018-02-18] MEDS ORDERED: 0.9 % Sodium Chloride 1,000 ML IVC ONE (23:50)
[2018-02-18] MEDS ORDERED: 0.9 % Sodium Chloride 500 ML IVC ONE (23:56)
[2018-02-19 06:23] LABS: Basophils % 0.4 %; Eosinophils # 0.1 K/mcL (0.0-0.6); Eosinophils % 2.4 %; Hemoglobin 8.9 g/dL (12.9-16.9); Immature Granulocytes % 0.6 % (0-4); Lymphocytes # 0.5 K/mcL (0.6-4.6); Mean Corpuscular HGB Conc 29.7 g/dL (31.6-35.5); Mean Corpuscular Hemoglobin 25.4 pg (28.0-33.3); Mean Corpuscular Volume 85.5 fL (83.0-100.0); Mean Platelet Volume 9.7 fL (9.4-12.4); Monocytes # 0.7 K/mcL (0.0-1.3); Monocytes % 12.9 %; Neutrophils # 3.8 K/mcL (1.6-8.9); Platelet Count 124 K/mcL (140-400); Red Blood Count 3.51 M/mcL (4.19-5.50); Segmented Neutrophils % 74.7 %
[2018-02-19] MEDS: Pantoprazole 40 MG VIAL IVP SCH (06:32)
[2018-02-19] MEDS: Insulin LISPRO 300 UNITS/3 ML VIAL SQ SCH ×2 (08:52→12:11)
[2018-02-19] MEDS: 0.9 % Sodium Chloride 1,000 ML IVC SCH (08:52)
[2018-02-19] MEDS: Torsemide 20 MG TABLET PO SCH (08:52)
[2018-02-19] MEDS: Folic Acid 1 MG TABLET PO SCH (08:52)
[2018-02-19] MEDS: Insulin DETEMIR 100 UNIT/ML X5UNITS SQ SCH (08:55)
[2018-02-19 09:25] LABS: Alanine Aminotransferase 19 Units/L (7-52); Albumin 2.3 g/dL (3.5-5.7); Albumin/Globulin Ratio 0.9 (1.1-2.2); Alkaline Phosphatase 179 Units/L (34-104); Aspartate Amino Transferase 33 Units/L (13-39); BUN/Creatinine Ratio 19 (6-26); Bilirubin,Total 0.5 mg/dL (0.3-1.0); Blood Urea Nitrogen 20 mg/dL (8-23); Calcium 7.2 mg/dL (8.6-10.3); Carbon Dioxide 22 mEq/L (23-29); Chloride 112 mEq/L (98-107); Globulin 2.7 g/dL (2.4-3.5); Glucose 175 mg/dL (70-105); Osmolality,Calculated 299 (280-300); Potassium 3.8 mEq/L (3.5-5.1); Sodium 141 mEq/L (136-145); eGFR For Non-African Americans > 60 (> 60)
[2018-02-19 11:40] LABS: Hematocrit 31.6 % (37.5-50.1); Hemoglobin 9.4 g/dL (12.9-16.9)
[2018-02-19] MEDS: Acetaminophen 325 MG TABLET PO PRN (13:58)
[2018-02-19 16:11] VITALS: BP 99/62
--- NOTE | 2018-02-19 16:11 | Discharge Summary ---
- NOTES TO OUTPATIENT PROVIDER Notes to Outpatient Provider: Pt. admitted w/hypotension and found to have DVT in right leg at [place] last week. 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 Pt. received transfusion and IV iron. Pt. is not anticoagulation candidate d/t risk of hemorrhage. IVC filter placed in 2014. Pt. reports need for IV transfusions and IV iron d/t GAVE status. Also reports weakness and will need PT /OT in rehabilitation setting. and pt. amenable to Palliative conversation w/explanation of care. Orders not resulted at time of discharge: Pending orders 02/19/18 17:15 H/H [Hemoglobin and Hematocrit] [HEME] Q6H 02/19/18 23:15 H/H [Hemoglobin and Hematocrit] [HEME] Q6H 02/20/18 04:00 CBC [Complete Blood Count] [HEME] AM 0400 Date of Encounter: 02/19/18 Time of Encounter: 11:20 - Discharge Diagnosis (1) GAVE (gastric antral vascular ectasia) Priority: Primary Status: Acute Assessment and Plan: Plan to have pt. f/u w/Dr. Schafer in his office w/i two weeks of discharge and repeat EGD in 6 weeks. (2) Hypoalbuminemia Priority: Primary Status: Acute Assessment and Plan: Albumin of 2.3, likely at least in part due to poor nutrition. Monitor Patient denies history of liver disease, kidney disease PO hydration and monitor f/u labs. 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 Qualifiers: DVT location: lower extremity Affected thrombotic vein of extremity: unspecified lower extremity distal vein Chronicity: acute Laterality: right Qualified Code(s): I82.4Z1 - Acute embolism and thrombosis of unspecified deep veins of right distal lower extremity (4) Hypotension Priority: Primary Status: Chronic Assessment and Plan: Hx of chronic hypotension SBP 90s w/DBP in 60s-70s If persists, Midodrine 5 mg BID for hypotension PT/OT for weakness/rehabilitation Qualifiers: Hypotension type: unspecified hypotension type Qualified Code(s): I95.9 - Hypotension, unspecified (5) GI bleed Priority: Primary Status: Chronic Assessment and Plan: - EGD shows LA esophagitis as well as gastritis Gastric antral vascular ectasia seen and treated with argon plasma coagulation Repeat procedure recommended in 6 weeks as OP Continue PPI Advance diet as tolerated Qualifiers: GI bleed type/associated pathology: angiodysplasia of stomach and duodenum Qualified Code(s): K31.811 - Angiodysplasia of stomach and duodenum with bleeding (6) Diabetes Priority: Secondary Status: Chronic Assessment and Plan: Continue sliding scale insulin BG checks ACHS Qualifiers: Diabetes mellitus type: type 2 Diabetes mellitus skilled nursing insulin use: with buttermaker continuous churn use Diabetes mellitus complication status: without complication Qualified Code(s): E11.9 - Type 2 diabetes mellitus without complications; Z79.4 - roasterman (current) use of insulin (7) Anemia Priority: Secondary Status: Chronic Assessment and Plan: Chronic anemia w/Hgb 9.4 today Likely combination of iron deficiency with chronic blood loss due to GI bleeds, GAVE syndrome Some dizziness likely d/t anemia. PT/OT Continue PPI Endoscopy on 02/15 shows L a grade a reflux esophagitis, chronic gastritis, gastric antral vascular ectasia treated with argon plasma coagulation. No specimens collected Repeat upper endoscopy in 6 weeks and return to Dr. Schafer's office within 2 weeks Qualifiers: Anemia type: iron deficiency Iron deficiency anemia type: chronic blood loss Qualified Code(s): D50.0 - Iron deficiency anemia secondary to blood loss (chronic) (8) CAD (coronary artery disease) Priority: Secondary Status: Chronic Assessment and Plan: Continue BB when BP is more stable No ASA due to GI bleeds Qualifiers: Coronary Disease-Associated Artery/Lesion type: unspecified vessel or lesion type [place] vs. transplanted heart: unspecified whether [place] or transplanted heart Associated angina: without angina Qualified Code(s): I25.10 - Atherosclerotic heart disease of [place] coronary artery without angina pectoris (9) BLAYNE (acute kidney injury) Priority: Primary Status: Resolved Assessment and Plan: Resolved. Hospital course: Mr. Martinez is a 77 year old male Discharge discussed with: patient, family - Time Spent with Patient Total time spent providing and/or coordinating discharge services: Less than 30 minutes Specific discharge activities: Increase activity as tolerated per PT/OT - Discharge Medications Home Medications: Carvedilol [Coreg] 25 mg PO BID 08/06/17 [History] Cyanocobalamin (Vitamin B-12) [Vitamin B12] 1,000 mcg PO DAILY 08/06/17 [History ] Folic Acid 1 mg PO DAILY 08/06/17 [History] Magnesium 84 mg PO BID 08/06/17 [History] Multivit-Min/FA/Lycopen/Lutein [Centrum Silver Men Tablet] 1 each PO DAILY 08/06 [History] Pantoprazole Sodium [Protonix] 40 mg PO BID 08/06/17 [History] Potassium Chloride [Klor-Con 10] 10 meq PO TID 08/06/17 [History] Venlafaxine [Effexor] 37.5 tab PO DAILY 08/06/17 [History] Vitamin E Acetate [Vitamin E] 400 unit PO DAILY 08/06/17 [History] Albuterol Sulfate [Albuterol Inhaler] 2 puff IH BID PRN 10/18/17 [History] Insulin ASPART [Novolog Flexpen] 20 unit SQ QAM 11/08/17 [History] Insulin Glargine [Lantus] 90 unit SQ BID 11/08/17 [History] Torsemide [Demadex] 10 mg PO DAILY 11/08/17 [History] l Gasseri/B Bifidum/B Longum [[employer] Health Capsule] 1 each PO DAILY [History] Ondansetron HCl [Zofran] 4 mg PO Q6H PRN #30 tab 12/06/17 [Rx] Atorvastatin [Lipitor] 40 mg PO HS 12/24/17 [History] Cholecalciferol (Vitamin D3) [Vitamin D3] 2,000 unit PO DAILY 01/18/18 [History] Prochlorperazine Maleate [Compazine] 5 mg PO BID PRN 01/18/18 [History] Insulin ASPART [NovoLOG] 35 unit SQ 1200 02/14/18 [History] Insulin ASPART [NovoLOG] 48 unit SQ 1800 02/14/18 [History] Allergies/Adverse Reactions: 3 Allergy/AdvReac Type Severity Reaction Status Date / Time Sulfa (Sulfonamide Allergy Rash Verified 02/13/18 22:50 Antibiotics) aspartame AdvReac Migraine Verified 02/16/18 12:34 hydrocodone [From Vicodin] AdvReac Confusion Verified 02/13/18 22:50 tramadol AdvReac Confusion Verified 02/13/18 22:50 Date of admission: 02/15/18 09:44 Primary care physician: [facility] [place] Consults: 02/14/18 04:51 Consult to Gastroenterology [CONS] Routine Consulting Provider: Gastroenterology Shi Reason for Consult: 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 Scheduled for outpatient EGD on 03/01 but now with worsening anemia Call Completed: No Consult to Oncology Hematology [CONS] Routine Consulting Provider: Alex Turcios Reason for Consult: patient of Dr. Turcios, for iron-def anemia on aranesp. Completed injectafer but persistently iron deficient. Scheduled to see Dr. Turcios today as an outpatient but admitted for worsening anemia Call Completed: No 02/15/18 10:25 Consult to Excavation Laborer [CONS] Routine Reason for SW Consult: may need rehab 02/15/18 10:26 Consult to Occupational Therapy [CONS] Routine Comment: Evaluate, develop and implement POC Reason for Consult: may need rehab Does patient have active BEDREST order?: No Is patient medically & hemodynamically stable?: Yes Patient assessed for mobility or mobilized this visit?: Yes Consult to Physical Therapy [CONS] Routine Comment: Evaluate, develop and implement POC Reason for Consult: may need rehab Does patient have active BEDREST order?: No Is patient medically & hemodynamically stable?: Yes Patient assessed for mobility or mobilized this visit?: Yes Discharging clinician: Brenton Egan Anticipated date of discharge: 02/19/18 - Constitutional Vitals: Temp Pulse Resp BP Pulse Ox 97.9 F 83 18 98/64 94 02/19/18 12:00 02/19/18 12:00 02/19/18 12:00 02/19/18 12:00 02/19/18 12:00 General appearance: Present: cooperative, mild distress (Nausea), A&O X 3, pleasant, obese, answers questions appropriately Exam: Pt. states he is able to eat and is progressing. Nausea overnight w/clear, bubbly emesis - no food. Continue nausea medication to promote increased PO intake of food and fluids. Pt. reports weakness in bilateral LEs. PT/OT rehab. Monitor BP for chronic hypotension and consider Midodrine 5 mg PO BID for hypotension. - Head Head exam: Present: atraumatic, normocephalic - Eye Eye exam: Present: PERRL, conjuntiva pink, sclera anicteric Pupils: Present: PERRL - ENT ENT exam: Present: normal exam - Neck Neck exam general surgery: Present: supple, trachea midline. Absent: lymphadenopathy - Respiratory Respiratory exam: Present: CTAB. Absent: accessory muscle use, rales, rhonchi, wheezes - Cardiovascular Cardiovascular exam: Present: RRR, +S1, +S2. Absent: diastolic murmur, gallop, rubs, systolic murmur - GI/Abdominal GI/Abdominal exam: Present: normal bowel sounds, soft, no peritoneal signs. Absent: distended, tenderness - Rectal Rectal exam: Present: deferred - Additional comments: exam deferred. - Extremities Exam Extremities exam: Present: warm, radial pulses palpable and symmetrical. Absent : calf tenderness, cyanotic, pedal edema - Back Exam Back exam: Present: CVA tenderness (R) (DVT dx at [place]), normal inspection - Neurological Exam Neurological exam: Present: CN II-XII intact, oriented X3, no focal deficits. Absent: pronater drift, facial droop, speech deficit - Psychiatric Psychiatric exam: Present: normal affect, normal mood - Skin Skin exam: Present: dry, intact - Patient Status Disposition: Transfer Inpatient Rehab Fac Condition: Good Functional capacity at discharge: uses cane/walker Overall status at discharge: patient is progressing back to baseline - Discharge Instructions Follow Up With: WILMA,PCP [Primary Care Provider] - 02/21/18 12:15 pm - Diet and Activity Activity: ambulate only with your walker, as per physical therapy, resume usual activities as tolerated Diet: advance to your usual diet - VTE Reasons for not Prescribing Prophylaxis: Medical contraindication
--- NOTE | 2018-02-19 17:18 | Physician Discharge Referral ---
ExtendedCare Referral Info [facility] To[facility] Provider in Charge: Brenton Egan Provider in Charge after Transfer: PCP Institutional Level of Care: Skilled - Diagnosis (1) GAVE (gastric antral vascular ectasia) Priority: Primary Status: Acute (2) Hypoalbuminemia Priority: Primary Status: Acute (3) DVT (deep venous thrombosis) Priority: Primary Status: Acute (4) Hypotension Priority: Primary Status: Chronic (5) GI bleed Priority: Primary Status: Chronic (6) Diabetes Priority: Secondary Status: Chronic (7) Anemia Priority: Secondary Status: Chronic (8) CAD (coronary artery disease) Priority: Secondary Status: Chronic (9) BLAYNE (acute kidney injury) Priority: Primary Status: Resolved Prognosis: Fair Aware of Diagnosis: Patient, Family - Transfer Medications Home Medications: Carvedilol [Coreg] 25 mg PO BID 08/06/17 [History] Cyanocobalamin (Vitamin B-12) [Vitamin B12] 1,000 mcg PO DAILY 08/06/17 [History ] Folic Acid 1 mg PO DAILY 08/06/17 [History] Magnesium 84 mg PO BID 08/06/17 [History] Multivit-Min/FA/Lycopen/Lutein [Centrum Silver Men Tablet] 1 each PO DAILY 08/06 [History] Pantoprazole Sodium [Protonix] 40 mg PO BID 08/06/17 [History] Potassium Chloride [Klor-Con 10] 10 meq PO TID 08/06/17 [History] Venlafaxine [Effexor] 37.5 tab PO DAILY 08/06/17 [History] Vitamin E Acetate [Vitamin E] 400 unit PO DAILY 08/06/17 [History] Albuterol Sulfate [Albuterol Inhaler] 2 puff IH BID PRN 10/18/17 [History] Insulin ASPART [Novolog Flexpen] 20 unit SQ QAM 11/08/17 [History] Insulin Glargine [Lantus] 90 unit SQ BID 11/08/17 [History] Torsemide [Demadex] 10 mg PO DAILY 11/08/17 [History] l Gasseri/B Bifidum/B Longum [Apptive Health Capsule] 1 each PO DAILY [History] Ondansetron HCl [Zofran] 4 mg PO Q6H PRN #30 tab 12/06/17 [Rx] Atorvastatin [Lipitor] 40 mg PO HS 12/24/17 [History] Cholecalciferol (Vitamin D3) [Vitamin D3] 2,000 unit PO DAILY 01/18/18 [History] Prochlorperazine Maleate [Compazine] 5 mg PO BID PRN 01/18/18 [History] Insulin ASPART [NovoLOG] 35 unit SQ 1200 02/14/18 [History] Insulin ASPART [NovoLOG] 48 unit SQ 1800 02/14/18 [History] Allergies/Adverse Reactions: 3 Allergy/AdvReac Type Severity Reaction Status Date / Time Sulfa (Sulfonamide Allergy Rash Verified 02/13/18 22:50 Antibiotics) aspartame AdvReac Migraine Verified 02/16/18 12:34 hydrocodone [From Vicodin] AdvReac Confusion Verified 02/13/18 22:50 tramadol AdvReac Confusion Verified 02/13/18 22:50 - Respiratory Orders Oxygen / L per min (2L) Smoking Cessation: Smoking cessation has been advised. For more information, call the [place] Tobacco Quit Line at 0-742-KLDO-NOW. - Lab Orders Lab Orders: CBC - Advance Directives Code Status: Full Code - Rehabiliation Orders Rehab Orders: Evaluation for Physical Therapy, Evaluation for Occupational Therapy - Diet Orders Cardiac CERTIFICATION: I certify that the transfer of the above named patient to an Extended Care Facility is necessary for the continuing treatment of the diagnosis listed. The above information is true and accurate reflection of patient's current condition. Confidential - Redisclosure prohibited without a patient's written consent.
== END 2018-02-19 17:45 | DRG 378 ==
LOC: 3BNU → SUATTDRO 04:15
PROVIDERS: ADMIT Internal Medicine; ATTEND Internal Medicine